=== PATIENT | male | born 1955 | race Caucasian/White ===

== ENCOUNTER 2016-10-15 19:35 | Emergency (ER) | payer BC ==
[~2016-10-15] VITALS: Ht 180.3 cm; Wt 111.1 kg
[2016-10-15 19:38] VITALS: TEMP 36.8; Ht 180.3 cm; Wt 111.1 kg
[2016-10-15] MEDS ORDERED: HYDROCODONE/ACETAMOPHEN 5/325MG TAB PO STA (20:11)
--- NOTE | 2016-10-15 20:47 | DIAGNOSTIC IMAGING REPORT ---
RIGHT HUMERUS MIN 2 VIEWS ROUTINE, RIGHT ELBOW MIN 3 VIEWS ROUTINE HISTORY: 61 years-old Male lifting injury, suspect biceps tendon rupture, eval fx Right COMPARISON: None available TECHNIQUE: 3 views of the right elbow and 2 views of the right humerus. FINDINGS: Humerus: There is moderate spurring of the medial aspect humeral neck. There is spurring at the greater tuberosity suggesting rotator cuff pathology. No acute fracture or dislocation is identified. There is soft tissue prominence in the region of the biceps musculature proximally with soft tissue swelling noted along the volar aspect of the distal humerus. Elbow: There is spurring of the medial and lateral epicondyles expected regions of the common flexor and extensor tendons respectively. The radial head is intact. No elbow joint effusion is identified. There is no acute fracture or dislocation. IMPRESSION: 1. No acute fracture or dislocation. 2. Soft tissue findings of the upper arm as above may reflect underlying distal biceps tendon injury which could be further evaluated with nonemergent elbow MRI if clinically indicated. 3. Mild degenerative changes of the humerus and elbow as above. The above report was generated using voice recognition software. It may contain grammatical, syntax or spelling errors. Electronically signed by: Maximiliano Summers M.D. 10/15/2016 8:46 PM Dictated Date/Time: 10/15/2016 8:42 PM
[2016-10-15] MEDS ORDERED: ASPI81TA28 PO (21:19)
[2016-10-15] MEDS ORDERED: CLOP1TAB15 PO (21:19)
[2016-10-15] MEDS ORDERED: GLC/500 PO (21:19)
[2016-10-15] MEDS ORDERED: ATEN-173 PO (21:19)
[2016-10-15] MEDS ORDERED: LEVO50TA6 PO (21:19)
[2016-10-15] MEDS ORDERED: CRESTOR PO (21:19)
[2016-10-15] MEDS ORDERED: CYCL0.052 OP (21:19)
--- NOTE | 2016-10-15 21:22 | EMERGENCY ROOM VISIT NOTE ---
ED Visit Note First contact with patient: 19:47 CHIEF COMPLAINT: Elbow pain HISTORY OF PRESENT ILLNESS: This 61-year-old male patient presents to the emergency department with his family member complaining of pain in the right elbow and upper arm after lifting an awning earlier today. He states he believes the awning was about 100 pounds. He states while he was lifting the awning, he felt suddenly catch and felt several "pops" in his arm and noticed that his muscle was bulging. The patient rates their pain as constant, aching, and 8/10. The patient has taken no medications for relief of the pain. The patient has not had previous injuries to this arm. The patient does not have any numbness or tingling. The patient denies any other injuries. He is right- hand dominant. REVIEW OF SYSTEMS: A 6 system review of systems was completed with positives and pertinent negatives listed in the HPI. ALLERGIES: See chart MEDICATIONS: See chart PMH: See chart SOCIAL HISTORY: See chart PHYSICAL EXAM: Vital Signs: Reviewed Nurse's notes, vital signs stable. GENERAL : Pleasant and cooperative, in no acute distress, well-developed, well- nourished. SKIN: The skin was without rashes, erythema, edema, warmth, or bruising. Capillary reflex less than 3 seconds. MUSCULOSKELETAL: The patient is holding their right arm against the body in a slightly flexed position. There is tenderness over the anterior distal upper arm just above the elbow joint with mild ecchymosis noted. The biceps muscle is noted to be bulging abnormally. Triceps strength 5/5, biceps strength 4/5 of the right arm. There is no tenderness with range of motion of the right elbow. There is no tenderness of the shoulder, wrist, or hand. The patient is able to give a thumbs up, make an OK sign, and a #3 with their fingers. Radial pulse 2+. NEURO: Patient was alert and oriented to person place and time. Normal sensation to light and sharp touch. IMAGING: RIGHT HUMERUS MIN 2 VIEWS ROUTINE, RIGHT ELBOW MIN 3 VIEWS ROUTINE HISTORY: 61 years-old Male lifting injury, suspect biceps tendon rupture, eval fx Right COMPARISON: None available TECHNIQUE: 3 views of the right elbow and 2 views of the right humerus. FINDINGS: Humerus: There is moderate spurring of the medial aspect humeral neck. There is spurring at the greater tuberosity suggesting rotator cuff pathology. No acute fracture or dislocation is identified. There is soft tissue prominence in the region of the biceps musculature proximally with soft tissue swelling noted along the volar aspect of the distal humerus. Elbow: There is spurring of the medial and lateral epicondyles expected regions of the common flexor and extensor tendons respectively. The radial head is intact. No elbow joint effusion is identified. There is no acute fracture or dislocation. IMPRESSION: 1. No acute fracture or dislocation. 2. Soft tissue findings of the upper arm as above may reflect underlying distal biceps tendon injury which could be further evaluated with nonemergent elbow MRI if clinically indicated. 3. Mild degenerative changes of the humerus and elbow as above. EMERGENCY DEPARTMENT COURSE: I examined the patient. An x-ray of the right humerus and right elbow was reviewed myself and read by radiology and shows no acute fracture, and does support diagnosis of possible biceps tendon injury. Based on the patient's history and clinical exam, I do suspect biceps tendon rupture. The patient was placed in right arm sling under my direction and the position was satisfactory. Neurovascular status was rechecked and intact. Patient was instructed to follow up with orthopedics. The patient was discharged home in stable condition. Problem List Medical Problems: (1) Carpal tunnel syndrome Status: Resolved (2) Glaucoma Status: Chronic (3) Hyperlipidemia Status: Chronic (4) Hypertension Status: Chronic Surgical Problems: (1) Hx of arthroscopic knee surgery Status: Resolved Current/Historical Medications Scheduled Aspirin (Aspirin Ec), 81 MG PO DAILY Atenolol (Tenormin), 25 MG PO DAILY Clopidogrel (Plavix), 75 MG PO DAILY Cyclosporine (Ophth) (Restasis), 1 DROP OP HS Levothyroxine Sodium (Levothyroxine Sodium), 50 MCG PO DAILY Metformin Hcl (Glucophage), 1,000 MG PO DAILY [Crestor], 1 TAB PO DAILY Allergies Coded Allergies: No Known Allergies (Unverified , 10/15/16) Vital Signs Date Time Temp Pulse Resp B/P (MAP) Pulse Ox O2 Delivery O2 Flow Rate FiO2 10/15/16 22:12 68 18 134/70 98 10/15/16 21:29 66 18 141/95 97 Room Air 10/15/16 19:38 36.8 86 20 146/90 95 Room Air Medications Administered Medications (Trade) Dose Ordered Sig/Jose Route Start Time Stop Time Status Last Admin Dose Admin Acetaminophen/ Hydrocodone Bitart ([place] 5/325 Tab) 1 tab NOW STAT PO 10/15/16 20:11 10/15/16 20:13 DC 10/15/16 20:18 1 TAB Departure Information Impression Primary Impression: Biceps tendon rupture Dispostion Home / Self-Care Condition GOOD Referrals Mikayla Weston DO (PCP) Patient Instructions Biceps Tendonitis Distal, My [facility] Additional Instructions Ice and elevation for the next 2 days. Wear the sling as needed for comfort. Tylenol 1000 mg every 8 hours and/or ibuprofen 600 mg every 6-8 hours as needed for pain. Follow-up with your critical care specialist in the next week to further evaluate your arm injury. Call for an appointment. Problem Qualifiers Primary Impression: Biceps tendon rupture Encounter type: initial encounter Laterality: right Qualified Codes: S46.211A - Strain of muscle, fascia and tendon of other parts of biceps, right arm, initial encounter
[2016-10-15 22:12] VITALS: BP 134/70; PULSE 68; O2SAT 98
== END 2016-10-15 22:12 | disposition home or self-care (01) ==
LOC: C.EDB 19:38 → C.EDD 22:12
DX: S46.211A Strain of muscle, fascia and tendon of other parts of biceps, right arm, initial encounter (principal); X50.9XXA Other and unspecified overexertion or strenuous movements or postures, initial encounter; E78.5 Hyperlipidemia, unspecified; I10 Essential (primary) hypertension; H40.9 Unspecified glaucoma; Z79.82 Long term (current) use of aspirin; Z79.84 Long term (current) use of oral hypoglycemic drugs

== ENCOUNTER → 2016-10-16 | Outpatient (CLI) | payer BC ==
[~2016-10-16] MED LIST: ASPI81TA28 PO; ATEN-173 PO; CLOP1TAB15 PO; CRESTOR PO; CYCL0.052 OP; GLC/500 PO; LEVO50TA6 PO
== END | disposition home or self-care (01) ==
LOC: C.CPL 15:51
DX: Z01.818 Encounter for other preprocedural examination (principal); S46.211A Strain of muscle, fascia and tendon of other parts of biceps, right arm, initial encounter; X58.XXXA Exposure to other specified factors, initial encounter

== ENCOUNTER → 2016-10-18 | Outpatient (CLI) | payer BC ==
[2016-10-18 13:29] LABS: PARTIAL THROMBOPLASTIN RATIO 1.2; PROTHROMBIN TIME (PATIENT) 10.7 SECONDS (9.0-12.0)
[2016-10-18 13:34] LABS: BASO % 0.8 %; BASO ABS # 0.05 K/uL (0-0.2); COMPLETE YES; EOS % 3.4 %; HEMATOCRIT 42.7 % (42-52); IG% 0.2 %; LYMPH % 36.8 %; MEAN CELL VOLUME 94.1 fL (80-100); MEAN CORPUSCULAR HEMOGLOBIN 31.9 pg (25-34); MEAN PLATELET VOLUME 10.7 fL (7.4-10.4); MONO % 7.8 %; PLATELET COUNT 227 K/uL (130-400); RED BLOOD COUNT 4.54 M/uL (4.7-6.1); WHITE BLOOD COUNT 6.25 K/uL (4.8-10.8)
[2016-10-18 13:44] LABS: ALT/SGPT 42 U/L (12-78); BLOOD UREA NITROGEN 11 mg/dl (7-18); BUN/CREATININE RATIO 12.3 (10-20); CALCIUM 9.1 mg/dl (8.5-10.1); CARBON DIOXIDE 24 mmol/L (21-32); CHLORIDE 110 mmol/L (98-107); CHOLESTEROL 98 mg/dl (0-200); CREATININE 0.93 mg/dl (0.60-1.40); GLUCOSE 89 mg/dl (70-99); POTASSIUM 4.4 mmol/L (3.5-5.1); SODIUM 141 mmol/L (136-145); TRIGLYCERIDES 75 mg/dl (0-150); VERY LOW DENSITY LIPOPROT CALC 15 mg/dl
[2016-10-18 13:55] LABS: ALB/GLOB RATIO 1.4 (0.9-2); ALKALINE PHOSPHATASE 52 U/L (45-117); AST/SGOT 32 U/L (15-37); CHOLESTEROL/HDL RATIO 2.2; HDL CHOLESTEROL 45 mg/dl; LDL CHOLESTEROL CALCULATED 38 mg/dl
== END | disposition home or self-care (01) ==
LOC: C.LABPVFM 07:34
PROVIDERS: ATTEND Family Medicine
DX: Z01.818 Encounter for other preprocedural examination (principal); E78.5 Hyperlipidemia, unspecified; I10 Essential (primary) hypertension; E03.9 Hypothyroidism, unspecified; Z11.59 Encounter for screening for other viral diseases

== ENCOUNTER → 2017-04-25 | Outpatient (CLI) | payer BC ==
[2017-04-25 12:31] LABS: HEMATOCRIT 45.3 % (42-52); HEMOGLOBIN 15.7 g/dL (14.0-18.0); MEAN CELL VOLUME 91.3 fL (80-100); MEAN CORPUSCULAR HEMOGLOBIN 31.7 pg (25-34); MEAN CORPUSCULAR HGB CONC 34.7 g/dl (32-36); MEAN PLATELET VOLUME 10.3 fL (7.4-10.4); PLATELET COUNT 212 K/uL (130-400); RED CELL DISTRIBUTION WIDTH CV 13.2 % (11.5-14.5); RED CELL DISTRIBUTION WIDTH SD 43.6 fL (36.4-46.3); WHITE BLOOD COUNT 6.46 K/uL (4.8-10.8)
[2017-04-25 12:50] LABS: ALBUMIN 4.2 gm/dl (3.4-5.0); ALT/SGPT 25 U/L (12-78); BLOOD UREA NITROGEN 12 mg/dl (7-18); CALCIUM 8.9 mg/dl (8.5-10.1); CARBON DIOXIDE 28 mmol/L (21-32); CHOLESTEROL 155 mg/dl (0-200); CREATININE 1.03 mg/dl (0.60-1.40); GLUCOSE 91 mg/dl (70-99); POTASSIUM 4.3 mmol/L (3.5-5.1); SODIUM 137 mmol/L (136-145)
[2017-04-25 12:55] LABS: HEMOGLOBIN A1C 5.6 % (4.5-5.6)
[2017-04-25 13:01] LABS: ALKALINE PHOSPHATASE 64 U/L (45-117); AST/SGOT 19 U/L (15-37); LDL CHOLESTEROL CALCULATED 79 mg/dl; TOTAL PROTEIN 7.5 gm/dl (6.4-8.2)
== END | disposition home or self-care (01) ==
LOC: C.LABPVFM 08:06
PROVIDERS: ATTEND Family Medicine
DX: R73.03 Prediabetes (principal)

== ENCOUNTER → 2017-10-20 | Outpatient (CLI) | payer BC ==
[~2017-10-20] MED LIST changes: +HYZ/10015 PO
[2017-10-20 13:34] LABS: HEMOGLOBIN A1C 5.7 % (4.5-5.6)
[2017-10-20 13:47] LABS: ALKALINE PHOSPHATASE 55 U/L (45-117); ALT/SGPT 30 U/L (12-78); AST/SGOT 24 U/L (15-37); BLOOD UREA NITROGEN 15 mg/dl (7-18); CALCIUM 8.6 mg/dl (8.5-10.1); CARBON DIOXIDE 24 mmol/L (21-32); CHOLESTEROL 105 mg/dl (0-200); CREATININE 0.99 mg/dl (0.60-1.40); GLUCOSE 92 mg/dl (70-99); LDL CHOLESTEROL CALCULATED 54 mg/dl; POTASSIUM 4.3 mmol/L (3.5-5.1); SODIUM 137 mmol/L (136-145)
== END | disposition home or self-care (01) ==
LOC: C.LABPVFM 07:55
PROVIDERS: ATTEND Family Medicine
DX: Z01.818 Encounter for other preprocedural examination (principal)

== ENCOUNTER 2021-09-12 05:05 | Observation (INO) ==
--- NOTE | 2021-09-07 14:07 | Anesthesiology Consultation ---
Date of Service September 07, 2021 Assessment & Plan (1) Encounter for pre-operative examination: Chart Review Chart Review: Acceptable Risk for Surgery History Surgery Operation Date: 09/12/21 07:15 Proposed Procedures p Left Total Shoulder Arthroplasty - Abdullahi Mariee MD Height/Weight Height: 5 ft 10 in Weight: 120.202 kg Allergies Allergy/AdvReac Type Severity Reaction Status Date / Time No Known Drug Allergies Allergy Verified 09/07/21 09:41 Medications Home Medications Medication Instructions Recorded Confirmed Last Taken aspirin 81 mg tablet,delayed 81 mg PO QAM tab 10/21/18 09/07/21 09/05/21 05:00 release hydrocodone 5 mg-acetaminophen 325 1 tab PO Q6H PRN #20 tab 05/15/21 09/07/21 09/05/21 22:00 mg tablet clopidogrel 75 mg tablet 75 mg PO QAM 08/08/21 09/07/21 09/05/21 05:00 rosuvastatin 20 mg tablet 20 mg PO QAM 08/08/21 09/07/21 09/06/21 06:00 atenolol 25 mg tablet 25 mg PO QAM #90 tab 09/03/21 09/07/21 09/06/21 06:00 levothyroxine 50 mcg tablet 50 mcg PO QAM #90 tab 09/03/21 09/07/21 09/06/21 06:00 losartan 100 mg tablet 100 mg PO QAM #90 tab 09/03/21 09/07/21 09/05/21 05:00 metformin 500 mg tablet 1,000 mg PO QAM 09/07/21 09/07/21 Unknown Past Medical History Medical History Biceps tendon tear R 2-3 yrs ago Carpal tunnel syndrome s/p surgery on right Cerebral atherosclerosis per pt with imaging 20 yrs ago Glaucoma H/O TIA (transient ischemic attack) and stroke 20 years ago Hearing loss Hyperlipidemia Hypertension controlled, stable per pt Hypothyroidism Lyme disease 2 episodes (8-10 years ago) Morbid obesity Prediabetes Reason for metformin Past Family History Family History Mother Diabetes Hypertension Father Myocardial infarction Denies family history of Ovarian cancer Prostate cancer Breast cancer Colorectal cancer Past Surgical History Surgical History History of carpal tunnel release Right Hx of arthroscopic knee surgery Right x2 and Left x1 S/P colonoscopy Social History Smoking Status: Current every day smoker tobacco type: cigarettes Smoking cigarettes per day: 1 ppd-advised Do You Dip or Chew Tobacco: No Hx Alcohol Use: Yes Alcohol type: beer alcohol intake frequency: a few times a month Hx Substance Use: No substance use type: does not use Testing Laboratory Results Laboratory Tests 08/10/21 08/10/21 09:48 09:48 WBC 7.94 Hgb 15.7 Hct 45.8 Plt Count 271 Potassium 4.6 Creatinine 0.97 Electrocardiogram Date: 08/10/21 Findings: + NSR @ (30)
--- NOTE | 2021-09-11 12:35 | History & Physical Report ---
Date of Service September 11, 2021 Assessment & Plan (1) Primary osteoarthritis, left shoulder: Plan: Treatment options discussed with the patient. He has failed conservative measures. Recommend proceeding with surgical intervention. Risks, benefits and alternatives to surgery including but not limited to infection, DVT, pain, stiffness, need for revision surgery, damage to blood vessels, damage to nerves, PE, , were discussed with the patient and they wish to proceed. Plan for left total shoulder arthroplasty, possible distal clavicle excision. Surgery scheduled for September 12, 2021 at [facility] with Dr. Mariee. We will plan on outpatient PT versus home health PT. all questions answered. Follow-up postop History of Present Illness Chief Complaint: Left shoulder pain Primary Care Provider: Mague Ramirez MD 66-year-old male with past medical history hypertension, history of TIA, high cholesterol, ROSSANA who presents with longstanding history of left shoulder pain. Pain is interfering with his daily activities. He has failed conservative measures. He like to proceed with surgical intervention. Patient denies headaches, sweats, fevers, chills, double vision, blurred vision, cough, sore throat, dysphagia, chest pain, sob, wheezing, n/v/d/c, numbness, tingling, fatigue, urinary symptoms, mood disorders. ROS positive for left shoulder pain and stiffness. Allergies Allergy/AdvReac Type Severity Reaction Status Date / Time No Known Drug Allergies Allergy Verified 09/07/21 09:41 Home Medications Medication Instructions Recorded Confirmed Type aspirin 81 mg tablet,delayed 81 mg PO QAM tab 10/21/18 09/07/21 History release hydrocodone 5 mg-acetaminophen 325 1 tab PO Q6H PRN #20 tab 05/15/21 09/07/21 Rx mg tablet clopidogrel 75 mg tablet 75 mg PO QAM 08/08/21 09/07/21 History rosuvastatin 20 mg tablet 20 mg PO QAM 08/08/21 09/07/21 History atenolol 25 mg tablet 25 mg PO QAM #90 tab 09/03/21 09/07/21 Rx levothyroxine 50 mcg tablet 50 mcg PO QAM #90 tab 09/03/21 09/07/21 Rx losartan 100 mg tablet 100 mg PO QAM #90 tab 09/03/21 09/07/21 Rx metformin 500 mg tablet 1,000 mg PO QAM 09/07/21 09/07/21 History Past Med/Surg History Medical History Biceps tendon tear R 2-3 yrs ago Carpal tunnel syndrome s/p surgery on right Cerebral atherosclerosis per pt with imaging 20 yrs ago Glaucoma H/O TIA (transient ischemic attack) and stroke 20 years ago Hearing loss Hyperlipidemia Hypertension controlled, stable per pt Hypothyroidism Lyme disease 2 episodes (8-10 years ago) Morbid obesity Prediabetes Reason for metformin Surgical History History of carpal tunnel release Right Hx of arthroscopic knee surgery Right x2 and Left x1 S/P colonoscopy Family History Mother Diabetes Hypertension Father Myocardial infarction Denies family history of Ovarian cancer Prostate cancer Breast cancer Colorectal cancer Social History (Updated 11/14/20 @ 16:02 by Laure Galan LPN) Smoking Status: Current every day smoker packs per day: 1; Cigarettes Per Day: 1 ppd-advised; Second Hand Exposure: No; Hx Alcohol Use: Yes Alcohol type: beer Hx Substance Use: No Preferred Language: Tuvaluan Communication Ability: Effective Hearing Ability: Hard of Hearing Hand 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 Required: No Beliefs That Will Affect Care: None marital status: Current Living Situation: Spouse current occupational status: employed 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 How many Children do You have: 4 Feels Safe at Home: Yes Childhood Exposure to Second-Hand Smoke: Yes caffeine: Yes Dental Care, Regularly: Yes Physical Activity Frequency: Daily Seatbelt Use: sometimes Sunscreen Use: Yes Assistive Devices: None Review of Systems All systems reviewed & are unremarkable except as noted in HPI & below Physical Exam Constitutional: well developed and well nourished; no acute distress Eyes: PERRL, conjunctivae normal, anicteric sclerae ENMT: external ear and nose normal, oropharynx normal Neck: trachea midline, no thyromegaly Respiratory: normal respiratory effort, lungs clear to auscultation Cardiovascular: RRR, no murmur, no edema Musculoskeletal: Left shoulder: Tenderness AC joint, anterior glenoid, crepitation present with range of motion. Active painful range of motion. Positive impingement signs. Abduction to 70 degrees, forward flexion 140 degrees, external rotation 80 degrees. Strength is preserved. Skin: no rashes, warm and dry Neurologic: patellar DTR's 2+ bilat, sensation intact Psychiatric: A+Ox3, euthymic affect Results & Data ([facility]) Diagnostic Findings Left shoulder: End-stage osteoarthritis left shoulder, [id number] glenohumeral joint. Degenerative changes AC joint. MRI demonstrates rotator cuff tendinopathy without full-thickness tear.
[2021-09-12] MEDS ORDERED: TRANEXAMIC ACID 1,000 MG **IV Intra-op IV SCH (06:00)
[2021-09-12] MEDS ORDERED: FAMOTIDINE 20 MG TAB PO SCH (06:00)
[2021-09-12] MEDS ORDERED: TRANEXAMIC ACID 1,000 MG **IV Pre-op IV SCH (06:00)
[2021-09-12] MEDS ORDERED: CeleBREX 200 MG CAP PO SCH (06:00)
[2021-09-12] MEDS ORDERED: dexAMETHasone 4 MG TAB PO SCH (06:00)
[2021-09-12] MEDS ORDERED: LR 15ML/HR IV SCH (06:00)
[2021-09-12] MEDS ORDERED: ACETAMINOPHEN 500 MG TAB PO SCH (06:00)
[2021-09-12] MEDS ORDERED: METOCLOPRAMIDE HCL 10 MG TABLET PO SCH (06:00)
[2021-09-12] MEDS ORDERED: GABAPENTIN 300 MG CAP PO SCH (06:00)
[2021-09-12] MEDS ORDERED: BUPIVACAINE 0.5 % 5 MG/1 ML PF 10ML VIAL ONE (06:13)
[2021-09-12] MEDS ORDERED: PROPOFOL IV EMULSION 10 MG/ML 20 ML VIAL IV ONE (06:33)
[2021-09-12] MEDS ORDERED: ONDANSETRON INJ 2 MG/ML 2 ML VIAL ONE (06:33)
[2021-09-12] MEDS ORDERED: fentaNYL citrate 100 MCG/2 ML VIAL ONE (06:33)
[2021-09-12] MEDS ORDERED: MIDAZOLAM HCL 1 MG/ML 2ML VIAL ONE (06:33)
[2021-09-12] MEDS ORDERED: SUCCINYLCHOLINE CHLORIDE 20 MG/ML 10 ML VIAL IV ONE (06:33)
[2021-09-12] MEDS ORDERED: ONDANSETRON INJ 2 MG/ML 2 ML VIAL IV PRN ×2 (06:37→11:43)
[2021-09-12] MEDS ORDERED: HYDROmorphone INJ 1 MG/ML SYRINGE IV PRN (06:37)
[2021-09-12] MEDS ORDERED: ePHEDrine sulfate 50 MG/ML AMP IV PRN (06:37)
[2021-09-12] MEDS ORDERED: fentaNYL citrate 100 MCG/2 ML VIAL IV PRN (06:37)
[2021-09-12] MEDS ORDERED: ATROPINE SULFATE 0.1 MG/ML 10ML SYR IV PRN (06:37)
--- NOTE | 2021-09-12 07:00 | History & Physical Bridge Note ---
Date of Service September 12, 2021 History & Physical Bridge Note I have examined the patient, reviewed the History & Physical and in the interval since the performance of the History & Physical I have noted the following changes of clinical significance: no changes noted
[2021-09-12] MEDS ORDERED: ePHEDrine sulfate 50 MG/ML AMP ONE (07:33)
[2021-09-12] MEDS ORDERED: PHENYLEPHRINE HCL 10 MG/ML VIAL ONE (07:33)
[2021-09-12] MEDS ORDERED: GLYCOPYRROLATE 0.2 MG/ML VIAL ONE (07:38)
[2021-09-12] MEDS ORDERED: DEXAMETHASONE SOD INJ 4 MG/ML VIAL ONE (07:47)
[2021-09-12] MEDS ORDERED: SUGAMMADEX SODIUM 200 MG/2 ML VIAL IV ONE (08:00)
[2021-09-12] MEDS ORDERED: ROCURONIUM BROMIDE 10 MG/ML 5 ML VIAL IV ONE ×6 (08:14→08:29)
[2021-09-12] MEDS ORDERED: EPINEPHrine INJ 1 MG/ML AMP TOP ONE (08:28)
--- NOTE | 2021-09-12 10:26 | Post Operative Brief Note ---
Immediate Post Op Note v1 Date of Surgery September 12, 2021 Pre & Post Diagnosis Operation Date: 09/12/21 07:00 Pre-Op Diagnosis: Osteoarthritis of the Left Shoulder Post-Op Diagnosis: Osteoarthritis of the Left Shoulder, chronic biceps tenosynovitis I identified the patient and participated in the time-out.: Yes Procedure Operation Date: 09/12/21 07:00 Actual Procedures p Left Total Shoulder Arthroplasty, with Distal Clavicle excision, Biceps Tenodesis(Left) - Abdullahi Mariee MD Surgeon Abdullahi Mariee MD Biomedical Specialist Venkat SCHMITT Estimated Blood Loss 50 Findings Consistent with Post-Op Diagnosis Specimens Humeral head distal clavicle Drains Hemovac Drain Anesthesia Type General Regional Complications none Disposition Disposition: Recovery Room Overlapping Procedure I was immediately available: during the entire case.
--- NOTE | 2021-09-12 10:53 | Operative Report ---
Post Operative Report Pre & Post Diagnosis Operation Date: 09/12/21 07:00 Pre-Op Diagnosis: Osteoarthritis of the Left Shoulder Post-Op Diagnosis: Osteoarthritis of the Left Shoulder, chronic biceps tenosynovitis I identified the patient and participated in the time-out.: Yes Procedure Operation Date: 09/12/21 07:00 Actual Procedures p Left Total Shoulder Arthroplasty, with Distal Clavicle excision, Biceps Tenodesis(Left) - Abdullahi Mariee MD Surgeon Abdullahi Mariee MD Dry Cleaner Helper Venkat SCHMITT Estimated Blood Loss 50 Findings Consistent with Post-Op Diagnosis Specimens Bone cuts Drains 2 Hemovac Anesthesia Type General Regional Complications none Disposition Disposition: Recovery Room Indications 66-year-old male with chronic progressive osteoarthritis of the left shoulder failed conservative management. X-rays demonstrate hypertrophic AC joint osteoarthritis with inferior spur causing impingement and end-stage glenohumeral osteoarthritis type A wear pattern Description of Procedure Patient was taken to the operating room anesthetized under regional block and general anesthetic. Patient was placed in a 40 degree beach chair position with a foam headrest protective eyewear all extremities padded teds and SCDs were placed. A towel roll was placed on the medial border of the scapula of the left upper extremity. The arm was examined and range of motion demonstrated forward flexion 150 degrees, external rotation 45 degrees, abduction 90 degrees. An anterior deltopectoral approach was performed. Longitudinal incision was made in deltopectoral interval. Skin incised sharply and subcutaneous flaps elevated. The deltopectoral interval was identified. The cephalic vein demonstrated large intact vein. The cephalic vein was retracted laterally with the deltoid. The clavipectoral fascia was divided at the lateral margin of the conjoined tendon extending up to the CA ligament. There was a thick falciform ligament. The upper centimeter of the pectoralis was released for inferior exposure. Biceps tendon demonstrated a large fluid collection surrounding the biceps tendon with chronic tenosynovitis extending up into the bicipital groove where there were some osteophytes. The biceps was tenodesed to the falciform ligament and pectoralis tendon using #2 FiberWire [id number] sutures. Proximal biceps was resected. Rotator cuff findings demonstrated intact rotator cuff with some subacromial subdeltoid bursitis which was resected. The circumflex vessels were tied off with silk ties and divided laterally. The subscapularis muscle fibers were split at the level of circumflex vessels and released off the inferior capsule with a Kitner elevator and then a blunt Hohmann retractor was placed protect the axillary nerve. The rotator interval was released down to the level of the glenoid. The subscapularis tendon was taken down with a transtendinous incision leaving a cuff of tissue for repair on the lesser tuberosity. The humeral head findings demonstrated large inferior osteophytes with a flattened head with eburnated bone and the majority of articular cartilage was down to bone. The inferior osteophytes were resected using an artist chisel and rongeur. The inferior capsule was released off the bone subperiosteally using a Lucia elevator. A #1 Vicryl traction suture was p laced into the free edge of the subscapularis tendon. A Fukuda retractor was placed into the joint. Capsule was released with Pérez scissors down to the glenoid and off of the anterior glenoid to the rotator interval which was released to meet the capsular release creating a 360 degree release of subscapularis tendon. An anterior Bankart retractor was placed. The glenoid and labral findings demonstrated type a central wear with complete loss of articular cartilage on the entire glenoid with eburnated bone and small subchondral cysts. An anterior-inferior and posterior inferior capsule release was performed electrocautery on bone and a Lucia elevator. The axillary nerve was protected inferiorly with the blunt Hohmann. Attention was taken back to the humeral head. Humeral head was exposed with extension and external rotation. The oscillating saw was used to make an anatomic neck cut removing the articular surface. All the circumferential remaining osteophytes were trimmed with a rongeur. The humerus was sized for a 2 nucleus and a 52 x 23 mm humeral head. The bone was assessed with a thumb press test and there was solid cancellous bone. The guide for the nucleus was placed centrally and then the guidepin was placed. The surface reamer was used followed by the central drill for the nucleus. The trial nucleus was inserted and the cut protector was placed. The humerus was retracted posterior to the glenoid . A Tornier retractor ,Hohmann retractors as well as an anterior Bankart retractor were placed. The glenoid was fully exposed. The Tornier Cortiloc glenoid was used. The medium 40 radius size was chosen. The central drill hole was made followed by the reamer for the glenoid followed by widening the central hole for the central post. The guide for the peripheral drill holes was placed and the drill holes were made. The trial reduction performed with stable fixation. The trial removed and the glenoid copiously irrigated with pulsed saline solution. The drill holes were packed with epinephrine-soaked tampons. The Palacos G cement was vacuum mixed. The Tornier medium 40 radius Cortiloc glenoid component was then cemented in position after drying the glenoid after removal of the tampons. Fixation was excellent. All excess cement was cleared. When the cement cured we moved onto removing the cut protector doing a trial reduction with a 52 x 23 millimeter humeral head trial. Stability was assessed and was stable. Soft tissue tension on the subscapularis tendon was satisfactory. The trial components of the humeral head were removed and the 3 drill holes were made in the harder bone in the biceps groove area and transosseous #5 FiberWire sutures were placed. Then the humeral cut surface was reexposed with retractors and after irrigation the size 2 nucleus was impacted leaving it slightly proud until the simplicity head 52 x 23 humeral head was placed into the nucleus and then both were impacted into the humerus with a tight press-fit. The humerus was reduced to the glenoid. The stability was verified. The subscapularis tendon was repaired in 2 [id number] #2 FiberWire sutures. Lateral row fixation was performed with interrupted rqskbt-[id number] #2 FiberWire sutures and rotator interval was closed with #2 FiberWire sutures. Range of motion demonstrated 150 degrees flexion, 90 degrees abduction, 45 degrees external rotation without tension on repair. The pectoralis was repaired with jzojvb-uy-yophh #2 FiberWire sutures placing sutures back through the biceps tendon to reinforce the tenodesis. Moist sponge was placed into the wound and attention was taken to the distal clavicle excision. A transverse incision was made across the acromioclavicular joint. Subperiosteal dissection was performed to expose 1 cm distal clavicle. Findings at the acromioclavicular joint were advanced osteoarthritis with large loose calcifications in the superior capsule that were resected out of the joint. There were superior and inferior osteophytes noted. Retractors were placed. 1 cm of distal clavicle was resected with an oscillating saw. After irrigation with pulsed saline solution, the deltotrapezial fascia was repaired with clfvnh-go-iucwh #2 FiberWire sutures subcutaneous tissues were closed with interrupted 2-0 Vicryl and the skin was closed with valeri 2 Hemovac drains were placed in the deltopectoral wound one deep to the conjoined tendon and one deep to the posterior deltoid. The deltopectoral interval was repaired with yyfamp-zh-ixbzl #1 Vicryl sutures. The subcutaneous tissue was repaired with 2-0 Vicryl sutures and the skin was closed with valeri. Sterile dressings were applied and a sling immobilizer. The patient tolerated the procedure well. Venkat SCHMITT acted as dietetic assistant throughout the procedure. He functioned as dietetic assistant assisting in all aspects of the procedure including patient positioning prepping draping, arm positioning, soft tissue retraction,, instrument management, subcutaneous and skin closure and postop care the patient as well. I attest to the content of the Intraoperative Record and any orders documented therein. Any exceptions are noted below.
--- NOTE | 2021-09-12 11:07 | XRay Report ---
XR shoulder LT min 2V routine HISTORY: 66 years-old Male Post shoulder surgery left knee total joint arthroplasty COMPARISON: Chest radiographs 08/10/2021 TECHNIQUE: 2 views of the left shoulder FINDINGS: Status post resection of the distal left clavicle. Satisfactory alignment of the left shoulder arthro plasty. Overlying skin valeri are noted along with expected postoperative soft tissue swelling with deep tissue air and overlying skin valeri. No acute fracture or unexpected opaque foreign body. IMPRESSION: Status post resection of the distal left clavicle with satisfactory positioning of the le ft shoulder arthroplasty. ACT 112: Negative or not required by law. The above report was generated using voice recognition software. It may contain grammatical, syntax o r spelling errors. Electronically signed by: Teto Summers M.D. 09/12/2021 11:06 AM
[2021-09-12] MEDS ORDERED: HYDROmorphone INJ 0.5 MG/0.5 ML SYR IV PRN (11:43)
[2021-09-12] MEDS ORDERED: bisacodyL 10 MG SUPP PR PRN (11:43)
[2021-09-12] MEDS ORDERED: METOCLOPRAMIDE HCL INJ 5 MG/ML 2 ML VIAL IV PRN (11:43)
[2021-09-12] MEDS ORDERED: TAMSULOSIN HCL 0.4 MG CAP PO PRN (11:43)
[2021-09-12] MEDS ORDERED: NALOXONE HCL 0.4 MG/1 ML VIAL/CARP IV PRN (11:43)
[2021-09-12] MEDS ORDERED: MAGNESIUM HYDROXIDE SUSP 30 ML UDC PO PRN (11:43)
[2021-09-12] MEDS: oxyCODONE HCL IR 5 MG TAB (IMMEDIATE RELEASE) PO PRN ×3 (12:01→21:46)
[2021-09-12] MEDS: SODIUM CHLORIDE 0.9% 1000ML 1,000 ML IV SCH ×2 (12:02→21:47)
--- NOTE | 2021-09-12 12:07 | Hospitalist Consultation ---
Date of Consultation September 12, 2021 Assessment & Plan (1) Primary osteoarthritis, left shoulder: - S/p total left shoulder arthroplasty. EBL 50 cc. 2 Hemovac drains placed. POD #0. - Defer IVF/antibiotics/pain medication/VTE PPx to primary team. - Patient has naloxone ordered as needed. - CBC and BMP in AM. (2) Hypertension: - Continue atenolol, may resume losartan pending adequate renal function on AM labs. (3) Hyperlipidemia: - Continue rosuvastatin 20 mg daily. (4) Hypothyroidism: - Continue levothyroxine 50 mcg daily. (5) Prediabetes: - Hold metformin. - A1c in August --> 5.7, POC glucose this AM 106. - Will order accuchecks achs with SSI w/o carb ratio. (6) H/O TIA (transient ischemic attack) and stroke: - Reportedly 20 years ago without residual deficits. - May continue on ASA + Plavix tomorrow AM. - Admitted to med/surg per primary team. - DVT ppx per primary team - Full Code. Supervising Physician Co-Signing Physician Notes Attending Attestation & Consult Note: Pt seen/examined, chart reviewed, care plan d/w PA Erika Nichole. I agree with the stephens components of her documentation. 66yo male - current tobacco user, h/o TIA, thyroid disease, HTN - who underwent L total shoulder replacement today. I saw him on the ortho floor post-op - resting comfortably, c/o left shoulder pain only. No chest pain, dyspnea, nausea or emesis. Able to tolerate a meal post-op. PMH/PSH/allergies/meds/sochx/famhx - reviewed VSS gen - NAD, resting comfortably in bed musculo - left shoulder dressings in place, left shoulder drain in place heart - RRR, s1 s2 lungs - CTA b/l abd - soft NT BS+ ext - no ankle edema, pulses 2+ b/l A/P: 1. s/p left total shoulder replacement today 2. h/o TIA 3. HTN 4. tobacco use see Ms Varela's documentation for plans f/u on AM labs tomorrow Francisco Ren MD History of Present Illness Reason for Consultation: post op medication management Requesting Physician: Abdullahi Mariee MD Attending Physician: Abdullahi Mariee MD History of Present Illness Elias Tran is a 6 y/o male with PMH significant for HTN, pre-diabetes, hyperlipidemia, hypothyroidism, previous CVA now on DAPT, and tobacco abuse who was admitted today 09/12 for left total shoulder arthroplasty after failing conservative measures. Hospitalist group was consulted for post-operative medication management. Today, he is POD#0 and feels well. He si without fever/chills, chest pain, SOB, palpitations, abdominal pain, n/v, numbness/tingling, weaknes, or severe pain at site of surgery. Vital signs reviewed, he is borderline tachycardic with HR in 90s, otherwise all VS wnl, on room air. Allergies Allergy/AdvReac Type Severity Reaction Status Date / Time No Known Drug Allergies Allergy Verified 09/12/21 05:56 Home Medications Medication Instructions Recorded Confirmed Type aspirin 81 mg tablet,delayed 81 mg PO QAM tab 10/21/18 09/12/21 History release hydrocodone 5 mg-acetaminophen 325 1 tab PO Q6H PRN #20 tab 05/15/21 09/12/21 Rx mg tablet clopidogrel 75 mg tablet (Plavix) 75 mg PO QAM 08/08/21 09/12/21 History rosuvastatin 20 mg tablet (Crestor) 20 mg PO QAM 08/08/21 09/12/21 History atenolol 25 mg tablet 25 mg PO QAM #90 tab 09/03/21 09/12/21 Rx losartan 100 mg tablet 100 mg PO QAM #90 tab 09/03/21 09/12/21 Rx metformin 500 mg tablet 1,000 mg PO QAM 09/07/21 09/12/21 History levothyroxine 50 mcg tablet 50 mcg PO QAM 09/12/21 09/12/21 History (Synthroid) acetaminophen 500 mg tablet 1,000 mg PO Q8 #60 tab 09/13/21 Rx (Tylenol Extra Strength) oxycodone 5 mg tablet 5 - 10 mg PO .Q4h-6h PRN #30 tab 09/13/21 Rx MDD 6 Patient History Medical History Biceps tendon tear R 2-3 yrs ago Carpal tunnel syndrome s/p surgery on right Cerebral atherosclerosis per pt with imaging 20 yrs ago Glaucoma H/O TIA (transient ischemic attack) and stroke 20 years ago Hearing loss Hyperlipidemia Hypertension controlled, stable per pt Hypothyroidism Lyme disease 2 episodes (8-10 years ago) Morbid obesity Prediabetes Reason for metformin Surgical History History of carpal tunnel release Right Hx of arthroscopic knee surgery Right x2 and Left x1 S/P colonoscopy Family History Mother Diabetes Hypertension Father Myocardial infarction Denies family history of Ovarian cancer Prostate cancer Breast cancer Colorectal cancer Social History Smoking Status: Current every day smoker packs per day: 1; Cigarettes Per Day: 1 ppd-advised; Second Hand Exposure: No; Do You Dip or Chew Tobacco: No; Tobacco Cessation Education Requested by Patient: No Hx Alcohol Use: Yes Alcohol type: beer Hx Substance Use: No Preferred Language: Urdu Communication Ability: Effective Hearing Ability: Hard of Hearing [employer]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: No Beliefs That Will Affect Care: None marital status: Current Living Situation: Spouse current occupational status: employed 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 How many Children do You have: 4 Other Information That Helps Us Care for You: No Feels Safe at Home: Yes Safety Concerns: Feels Safe At This Time Childhood Exposure to Second-Hand Smoke: Yes caffeine: Yes Dental Care, Regularly: Yes Physical Activity Frequency: Daily Seatbelt Use: sometimes Sunscreen Use: Yes Assistive Devices: None Results & Data Results & Data ([facility]) Vital Signs (Past 12 Hours) Vital Signs Temp Pulse Pulse Resp BP Pulse Ox 09/12/21 11:30 36.8 C 92 H 16 122/80 92 09/12/21 11:20 91 H 18 124/82 93 09/12/21 11:10 36.4 C L 89 20 120/86 94 09/12/21 11:00 91 H 17 140/99 93 09/12/21 10:50 87 18 137/93 95 09/12/21 10:42 36.1 C L 92 H 14 125/90 95 09/12/21 05:56 36.8 C 66 20 124/91 94 Laboratory Results Abnormal lab results 07/06/22 Range/Units 05:41 POC Glucose 106 H (70-99) mg/dl Diagnostic Findings Shoulder X-Ray 09/12/21 10:43 XR shoulder LT min 2V routine HISTORY: 66 years-old Male Post shoulder surgery left knee total joint arthroplasty COMPARISON: Chest radiographs 08/10/2021 TECHNIQUE: 2 views of the left shoulder FINDINGS: Status post resection of the distal left clavicle. Satisfactory alignment of the left shoulder arthroplasty. Overlying skin valeri are noted along with expected postoperative soft tissue swelling with deep tissue air and overlying skin valeri. No acute fracture or unexpected opaque foreign body. IMPRESSION: Status post resection of the distal left clavicle with satisfactory positioning of the left shoulder arthroplasty. ACT 112: Negative or not required by law. The above report was generated using voice recognition software. It may contain grammatical, syntax or spelling errors. Electronically signed by: Teto Summers M.D. 09/12/2021 11:06 AM PG Care Time/CCT Total # of Minutes Spent Total Time Spent with Patient: Total time spent is greater than 50% in coordination of care (as documented) at patient's floor/unit and/or counseling patient: Coding Level of Care Code 34509 Inpt Consult Level 2 Diagnoses Primary osteoarthritis, left shoulder M19.012 Hypertension I10 Hyperlipidemia E78.5 Hypothyroidism E03.9 Prediabetes R73.03 H/O TIA (transient ischemic attack) and stroke Z86.73
[2021-09-12] MEDS ORDERED: GLUCOSE 10 TAB/TUBE PO PRN (12:22)
[2021-09-12] MEDS ORDERED: GLUCOSE 40% GEL 15 GM TUBE PO PRN (12:22)
[2021-09-12] MEDS ORDERED: GLUCAGON FOR INJ 1 MG VIAL SQ PRN (12:22)
[2021-09-12] MEDS ORDERED: CARBOHYDRATES FOR HYPOGLYCEMIA PO PRN (12:22)
[2021-09-12] MEDS ORDERED: DEXTROSE 50% 50 ML SYRINGE IV PRN (12:22)
[2021-09-12] MEDS: ACETAMINOPHEN 500 MG TAB PO SCH ×2 (13:07→21:46)
[2021-09-12] MEDS: NICOTINE 21 MG/24 HR TDSY TD SCH (13:43)
--- NOTE | 2021-09-12 14:56 | Anesthesiology Progress Note ---
Date of Service September 12, 2021 Anesthesia Post Procedure Vital Signs Vital Signs: Temp Pulse Pulse Resp BP Pulse Ox 09/12/21 14:30 36.7 C 91 H 17 118/78 93 09/12/21 13:27 36.4 C L 94 H 17 122/83 91 09/12/21 12:50 36.7 C 99 H 17 119/84 93 09/12/21 12:30 36.7 C 93 H 17 119/84 93 09/12/21 11:58 36.4 C L 94 H 16 119/85 93 09/12/21 11:30 36.8 C 92 H 16 122/80 92 09/12/21 11:20 91 H 18 124/82 93 09/12/21 11:10 36.4 C L 89 20 120/86 94 09/12/21 11:00 91 H 17 140/99 93 09/12/21 10:50 87 18 137/93 95 09/12/21 10:42 36.1 C L 92 H 14 125/90 95 09/12/21 05:56 36.8 C 66 20 124/91 94 Pain Intensity Left Shoulder: Pain Intensity: 4 Transfer of Care Handoff Completed per policy Notes Mental Status: alert / awake / arousable and participated in evaluation Patient Amnestic to Procedure: Yes Nausea / Vomiting: adequately controlled Pain: adequately controlled Airway Patency, RR, SpO2: stable & adequate BP & HR: stable & adequate Hydration State: stable & adequate Anesthetic Complications: no major complications apparent and Pt Satisfied with anesthetic care
[2021-09-12] MEDS: ceFAZolin 2000MG 2,000 MG/15 ML SYR IV SCH (16:24)
[2021-09-12] MEDS: INSULIN ASPART PER UNIT SC SCH ×2 (17:34→21:45)
[2021-09-12] MEDS: DOCUSATE SODIUM 100 MG CAP PO SCH (19:49)
[2021-09-12] MEDS ORDERED: SENNA 8.6 MG TAB PO SCH (21:00)
[2021-09-13] MEDS: ceFAZolin 2000MG 2,000 MG/15 ML SYR IV SCH (00:07)
[2021-09-13] MEDS: oxyCODONE HCL IR 5 MG TAB (IMMEDIATE RELEASE) PO PRN ×2 (03:10→07:15)
[2021-09-13] MEDS: ACETAMINOPHEN 500 MG TAB PO SCH (05:50)
[2021-09-13 06:09] LABS: Basophils # (auto) 0.01 K/uL (0-0.2); Basophils % (auto) 0.1 %; Hematocrit (blood only) 40.7 % (40.1-51.0); Immature Granulocytes # (auto) 0.05 K/uL (0.00-0.02); Immature Granulocytes % (auto) 0.4 %; Lymphocytes # (auto) 0.89 K/uL (1.2-3.4); Lymphocytes % (auto) 6.8 %; Mean Corpuscular Hemoglobin 30.6 pg (25.0-34.0); Mean Corpuscular Hgb Conc 34.4 g/dL (32.0-36.0); Mean Corpuscular Volume 89.1 fL (80.0-100.0); Mean Platelet Volume 9.6 fL (9.4-12.4); Monocytes # (auto) 0.87 K/uL (0.24-0.82); Monocytes % (auto) 6.6 %; Neutrophils # (auto) 11.34 K/uL (1.4-6.5); Neutrophils % (auto) 86.1 %; Platelet Count 243 K/uL (130-400); RDW Coefficient of Variation 12.5 % (11.5-14.5); RDW Standard Deviation 41.2 fL (36.4-46.3); Red Blood Count 4.57 M/uL (4.63-6.08); White Blood Count 13.16 K/ul (4.8-10.8)
[2021-09-13] MEDS ORDERED: LEVOTHYROXINE SODIUM 50 MCG TABLET PO SCH (06:30)
[2021-09-13 06:40] LABS: BUN Creatinine Ratio 18.5 (10-20); Calcium 8.8 mg/dl (8.5-10.1); Creatinine Clr Calc Pharmacy 107.3 ml/min; Est GFR (African American) 100.1 ml/min; Est GFR (Non-African American) 86.4 ml/min; Potassium 4.4 mmol/L (3.5-5.1)
--- NOTE | 2021-09-13 07:17 | Orthopedic Progress Note ---
Date of Service September 13, 2021 Assessment & Plan (1) Primary osteoarthritis, left shoulder: Plan: Postop day #1 left simplicity total shoulder arthroplasty, open distal clavicle excision -PT/OT -Pain management as written -DVT prophylaxis: SCDs, home Plavix and aspirin -AM labs: Hemoglobin stable. Mild leukocytosis likely reactive due to surgical stress/perioperative steroids. -Discharge planning: Plan on discharge home with outpatient PT. Plan on discharge home today. Admission and Anticipated Discharge Date Admission Date: September 12, 2021 Subjective Postop day #1 left total shoulder. Patient is doing well postoperatively. His pain is well controlled. Block is starting to wear off and getting feeling back in his fingers. No current complaints. Denies chest pain, shortness of breath, dizziness, lightheadedness, nausea/vomiting/diarrhea. Review of Systems Review of Systems: All systems reviewed & are unremarkable except as noted in Subjective Physical Exam Physical Exam: Left shoulder: Dressing is clean, dry, intact. Hemovac in place. Sling in place. Fingers are mobile. Has good servicenow administrator strength. Good wrist extension. Distally neurovascular status and sensation intact. Constitutional: WD/WN, vitals as above Results & Data ([facility]) Vital Signs (Past 12 Hours) Vital Signs Temp Pulse Resp BP Pulse Ox 09/13/21 03:07 36.6 C 98 H 18 152/96 H 93 09/12/21 22:51 36.7 C 97 H 18 130/84 93 09/12/21 19:30 36.6 C 90 18 114/77 94 Laboratory Results Lab Results 09/12/21 09/12/21 09/12/21 Range/Units 05:24 05:41 06:20 WBC (4.8-10.8) K/ul RBC (4.63-6.08) M/uL Hgb (14.0-18.0) g/dl Hct (40.1-51.0) % MCV (80.0-100.0) fL MCH (25.0-34.0) pg MCHC (32.0-36.0) g/dL RDW Std Deviation (36.4-46.3) fL RDW Coeff of Cara (11.5-14.5) % Plt Count (130-400) K/uL MPV (9.4-12.4) fL Immature Gran % (Auto) % Neut % (Auto) % Lymph % (Auto) % Gosper % (Auto) % Eos % (Auto) % Baso % (Auto) % Neut # (Auto) (1.4-6.5) K/uL Lymph # (Auto) (1.2-3.4) K/uL Gosper # (Auto) (0.24-0.82) K/uL Eos # (Auto) (0-0.50) K/uL Baso # (Auto) (0-0.2) K/uL Immature Gran # (Auto) (0.00-0.02) K/uL Sodium (136-145) mmol/L Potassium (3.5-5.1) mmol/L Chloride (98-107) mmol/L Carbon Dioxide (21-32) mmol/L Anion Gap (3-11) BUN (6-23) mg/dl Creatinine (0.6-1.4) mg/dl Est Cr Clr Drug Dosing ml/min Est GFR ( Amer) ml/min Est GFR (Non-Af Amer) ml/min BUN/Creatinine Ratio (10-20) Glucose (70-99(Fasting)) mg/dl POC Glucose 106 H (70-99) mg/dl Calcium (8.5-10.1) mg/dl SARS-CoV-2, RNA, NAAT NEGATIVE (NEGATIVE) Blood Type O Positive Antibody Screen NEGATIVE 09/12/21 09/12/21 09/13/21 Range/Units 17:02 20:51 05:54 WBC 13.16 H (4.8-10.8) K/ul RBC 4.57 L (4.63-6.08) M/uL Hgb 14.0 (14.0-18.0) g/dl Hct 40.7 (40.1-51.0) % MCV 89.1 (80.0-100.0) fL MCH 30.6 (25.0-34.0) pg MCHC 34.4 (32.0-36.0) g/dL RDW Std Deviation 41.2 (36.4-46.3) fL RDW Coeff of Cara 12.5 (11.5-14.5) % Plt Count 243 (130-400) K/uL MPV 9.6 (9.4-12.4) fL Immature Gran % (Auto) 0.4 % Neut % (Auto) 86.1 % Lymph % (Auto) 6.8 % Gosper % (Auto) 6.6 % Eos % (Auto) 0.0 % Baso % (Auto) 0.1 % Neut # (Auto) 11.34 H (1.4-6.5) K/uL Lymph # (Auto) 0.89 L (1.2-3.4) K/uL Gosper # (Auto) 0.87 H (0.24-0.82) K/uL Eos # (Auto) 0.00 (0-0.50) K/uL Baso # (Auto) 0.01 (0-0.2) K/uL Immature Gran # (Auto) 0.05 H (0.00-0.02) K/uL Sodium (136-145) mmol/L Potassium (3.5-5.1) mmol/L Chloride (98-107) mmol/L Carbon Dioxide (21-32) mmol/L Anion Gap (3-11) BUN (6-23) mg/dl Creatinine (0.6-1.4) mg/dl Est Cr Clr Drug Dosing ml/min Est GFR ( Amer) ml/min Est GFR (Non-Af Amer) ml/min BUN/Creatinine Ratio (10-20) Glucose (70-99(Fasting)) mg/dl POC Glucose 185 H 142 H (70-99) mg/dl Calcium (8.5-10.1) mg/dl SARS-CoV-2, RNA, NAAT (NEGATIVE) Blood Type Antibody Screen 09/13/21 Range/Units 05:54 WBC (4.8-10.8) K/ul RBC (4.63-6.08) M/uL Hgb (14.0-18.0) g/dl Hct (40.1-51.0) % MCV (80.0-100.0) fL MCH (25.0-34.0) pg MCHC (32.0-36.0) g/dL RDW Std Deviation (36.4-46.3) fL RDW Coeff of Cara (11.5-14.5) % Plt Count (130-400) K/uL MPV (9.4-12.4) fL Immature Gran % (Auto) % Neut % (Auto) % Lymph % (Auto) % Gosper % (Auto) % Eos % (Auto) % Baso % (Auto) % Neut # (Auto) (1.4-6.5) K/uL Lymph # (Auto) (1.2-3.4) K/uL Gosper # (Auto) (0.24-0.82) K/uL Eos # (Auto) (0-0.50) K/uL Baso # (Auto) (0-0.2) K/uL Immature Gran # (Auto) (0.00-0.02) K/uL Sodium 135 L (136-145) mmol/L Potassium 4.4 (3.5-5.1) mmol/L Chloride 104 (98-107) mmol/L Carbon Dioxide 22 (21-32) mmol/L Anion Gap 9 (3-11) BUN 17 (6-23) mg/dl Creatinine 0.92 (0.6-1.4) mg/dl Est Cr Clr Drug Dosing 107.3 ml/min Est GFR ( Amer) 100.1 ml/min Est GFR (Non-Af Amer) 86.4 ml/min BUN/Creatinine Ratio 18.5 (10-20) Glucose 129 H (70-99(Fasting)) mg/dl POC Glucose (70-99) mg/dl Calcium 8.8 (8.5-10.1) mg/dl SARS-CoV-2, RNA, NAAT (NEGATIVE) Blood Type Antibody Screen
[2021-09-13] MEDS: DOCUSATE SODIUM 100 MG CAP PO SCH (07:49)
[2021-09-13] MEDS: NICOTINE 21 MG/24 HR TDSY TD SCH ×2 (07:49→07:54)
[2021-09-13] MEDS: INSULIN ASPART PER UNIT SC SCH (08:12)
[2021-09-13] MEDS ORDERED: ROSUVASTATIN CALCIUM 20 MG TAB PO SCH (09:00)
[2021-09-13] MEDS ORDERED: LOSARTAN POTASSIUM 50 MG TAB PO SCH (09:00)
[2021-09-13] MEDS ORDERED: CLOPIDOGREL BISULFATE 75 MG TAB PO SCH (09:00)
[2021-09-13] MEDS ORDERED: ATENOLOL 25 MG TABLET PO SCH (09:00)
[2021-09-13] MEDS ORDERED: ASPIRIN 81 MG ECTAB PO SCH (09:00)
[2021-09-13] MEDS ORDERED: MULTIVITAMIN TAB PO SCH (09:00)
--- NOTE | 2021-09-13 10:25 | Hospitalist Progress Note ---
Date of Service September 13, 2021 Assessment & Plan (1) Primary osteoarthritis, left shoulder: Plan: - S/p total left shoulder arthroplasty pod #1 - slight leukocytosis likely combo of reactive from surgery + steroids given preop - Pain control as written - Shoulder immobilizer as per ortho - Recommend dvt ppx 10-12 days - Incentive spirometer use q1h wa for atelectasis/pna prevention - f/u with ortho and PT/OT (2) Hypertension: Plan: - Continue atenolol and Losartan (3) Hyperlipidemia: Plan: - Continue rosuvastatin 20 mg daily. (4) Hypothyroidism: Plan: - Continue levothyroxine 50 mcg daily. (5) Prediabetes: Plan: - Hold metformin. - A1c in August --> 5.7, POC glucose this AM 106. - Will order accuchecks achs with SSI w/o carb ratio. (6) H/O TIA (transient ischemic attack) and stroke: Plan: - Reportedly 20 years ago without residual deficits. - Resumed ASA and Plavix Plan: No further recommendations at this time. Pt is deemed suitable for discharge from medicine standpoint. Thank you for allowing us to participate in the care of your patient, will sign off. Please feel free to notify if any acute needs should arise while pt remains in house. Plan to be d/w Dr. Yuan Husain. Admission and Anticipated Discharge Date Admission Date: September 12, 2021 Subjective Patient seen on daily rounds this morning. He is seen up ambulating around his room and in gleason. He denies L shoulder pain. No cp, dyspnea, n/v/d, f/c, headache, or gu symptoms. He feels block is starting to wear off and he is getting sensation/feeling back in his fingers/hand. Pt is R handed. Review of Systems Review of Systems: All systems reviewed and are unremarkable except as noted in HPI and below. Denies fever, chills, fatigue, headache, nasal congestion, sore throat, cough, chest pain, shortness of breath, palpitations, orthopnea, PND, abdominal pain, n/v/d, constipation, dysuria, hematuria, frequency, back pain, joint pain or swelling, easy bruising or bleeding, skin lesions or rashes. Physical Exam Physical Exam: GENERAL: 66 yo obese WM. NAD. LUNGS: Clear to auscultation bilaterally. No W/R/R. CARDIOVASCULAR: Regular rate and rhythm. No M/G/R. No JVD. ABDOMEN: Soft, non-tender and non-distended. BS normoactive x 4 quad. EXTREMITIES: L shoulder incision dressed and UE in sling. NV intact. No edema. Non-tender. Peripheral pulses +2/4. NEUROLOGIC: A&O x3. PSYCHIATRIC: Cooperative. Appropriate mood and affect. SKIN: Warm, dry, intact. No rashes or lesions. Results & Data Results & Data ([facility]) Vital Signs (Past 12 Hours) Vital Signs Temp Pulse Pulse Resp BP Pulse Ox 09/13/21 09:46 36.4 C L 91 H 92 H 20 150/92 H 93 09/13/21 07:22 36.4 C L 92 H 20 150/92 H 93 09/13/21 03:07 36.6 C 98 H 18 152/96 H 93 09/12/21 22:51 36.7 C 97 H 18 130/84 93 Laboratory Results 09/13/21 05:54 09/13/21 05:54 PG Care Time/CCT Total # of Minutes Spent Total Time Spent with Patient: Total time spent is greater than 50% in coordination of care (as documented) at patient's floor/unit and/or counseling patient: Coding Level of Care Code 01090 Subseq Hosp Care Lvl 2 Diagnoses Primary osteoarthritis, left shoulder M19.012 Hypertension I10 Hyperlipidemia E78.5 Hypothyroidism E03.9 Prediabetes R73.03 H/O TIA (transient ischemic attack) and stroke Z86.73
--- NOTE | 2021-09-14 07:56 | Discharge Summary ---
Date of Service September 14, 2021 Admission HPI Per Admitting Provider 66-year-old male with past medical history hypertension, history of TIA, high cholesterol, ROSSANA who presents with longstanding history of left shoulder pain. Pain is interfering with his daily activities. He has failed conservative measures. He like to proceed with surgical intervention. Patient denies headaches, sweats, fevers, chills, double vision, blurred vision, cough, sore throat, dysphagia, chest pain, sob, wheezing, n/v/d/c, numbness, tingling, fatigue, urinary symptoms, mood disorders. ROS positive for left shoulder pain and stiffness. Admission Exam Per Admitting Provider Constitutional: well developed and well nourished; no acute distress Eyes: PERRL, conjunctivae normal, anicteric sclerae ENMT: external ear and nose normal, oropharynx normal Neck: trachea midline, no thyromegaly Respiratory: normal respiratory effort, lungs clear to auscultation Cardiovascular: RRR, no murmur, no edema Musculoskeletal: Left shoulder: Tenderness AC joint, anterior glenoid, crepitation present with range of motion. Active painful range of motion. Positive impingement signs. Abduction to 70 degrees, forward flexion 140 degrees, external rotation 80 degrees. Strength is preserved. Skin: no rashes, warm and dry Neurologic: patellar DTR's 2+ bilat, sensation intact Psychiatric: A+Ox3, euthymic affect Principal Diagnosis left shoulder osteoarthritis Discharge Exam Left shoulder: Dressing is clean, dry, intact. Hemovac in place. Sling in place. Fingers are mobile. Has good traffic recorder strength. Good wrist extension. Distally neurovascular status and sensation intact. Constitutional WD/WN, vitals as above Discharge Data Allergies Allergy/AdvReac Type Severity Reaction Status Date / Time No Known Drug Allergies Allergy Verified 09/12/21 05:56 Consultations 09/07/21 15:18 Consult Hospitalist Routine Procedures Performed Operation Date: 09/12/21 07:00 Actual Procedures p Left Total Shoulder Arthroplasty, with Distal Clavicle excision, Biceps Tenodesis(Left) - Abdullahi Mariee MD Ordered Studies 09/12/21 08:42 US - OR guided needle placemen Routine Hospital Course (1) Primary osteoarthritis, left shoulder: Postop day #1 left simplicity total shoulder arthroplasty, open distal clavicle excision -PT/OT -Pain management as written -DVT prophylaxis: SCDs, home Plavix and aspirin -AM labs: Hemoglobin stable. Mild leukocytosis likely reactive due to surgical stress/perioperative steroids. -Discharge planning: Plan on discharge home with outpatient PT. Plan on discharge home today. Lab Results 09/12/21 09/12/21 09/12/21 Range/Units 05:24 05:41 06:20 WBC (4.8-10.8) K/ul RBC (4.63-6.08) M/uL Hgb (14.0-18.0) g/dl Hct (40.1-51.0) % MCV (80.0-100.0) fL MCH (25.0-34.0) pg MCHC (32.0-36.0) g/dL RDW Std Deviation (36.4-46.3) fL RDW Coeff of Cara (11.5-14.5) % Plt Count (130-400) K/uL MPV (9.4-12.4) fL Immature Gran % (Auto) % Neut % (Auto) % Lymph % (Auto) % [place] % (Auto) % Eos % (Auto) % Baso % (Auto) % Neut # (Auto) (1.4-6.5) K/uL Lymph # (Auto) (1.2-3.4) K/uL [place] # (Auto) (0.24-0.82) K/uL Eos # (Auto) (0-0.50) K/uL Baso # (Auto) (0-0.2) K/uL Immature Gran # (Auto) (0.00-0.02) K/uL Sodium (136-145) mmol/L Potassium (3.5-5.1) mmol/L Chloride (98-107) mmol/L Carbon Dioxide (21-32) mmol/L Anion Gap (3-11) BUN (6-23) mg/dl Creatinine (0.6-1.4) mg/dl Est Cr Clr Drug Dosing ml/min Est GFR ( Amer) ml/min Est GFR (Non-Af Amer) ml/min BUN/Creatinine Ratio (10-20) Glucose (70-99(Fasting)) mg/dl POC Glucose 106 H (70-99) mg/dl Calcium (8.5-10.1) mg/dl SARS-CoV-2, RNA, NAAT NEGATIVE (NEGATIVE) Blood Type O Positive Antibody Screen NEGATIVE 09/12/21 09/12/21 09/13/21 Range/Units 17:02 20:51 05:54 WBC 13.16 H (4.8-10.8) K/ul RBC 4.57 L (4.63-6.08) M/uL Hgb 14.0 (14.0-18.0) g/dl Hct 40.7 (40.1-51.0) % MCV 89.1 (80.0-100.0) fL MCH 30.6 (25.0-34.0) pg MCHC 34.4 (32.0-36.0) g/dL RDW Std Deviation 41.2 (36.4-46.3) fL RDW Coeff of Cara 12.5 (11.5-14.5) % Plt Count 243 (130-400) K/uL MPV 9.6 (9.4-12.4) fL Immature Gran % (Auto) 0.4 % Neut % (Auto) 86.1 % Lymph % (Auto) 6.8 % [place] % (Auto) 6.6 % Eos % (Auto) 0.0 % Baso % (Auto) 0.1 % Neut # (Auto) 11.34 H (1.4-6.5) K/uL Lymph # (Auto) 0.89 L (1.2-3.4) K/uL [place] # (Auto) 0.87 H (0.24-0.82) K/uL Eos # (Auto) 0.00 (0-0.50) K/uL Baso # (Auto) 0.01 (0-0.2) K/uL Immature Gran # (Auto) 0.05 H (0.00-0.02) K/uL Sodium (136-145) mmol/L Potassium (3.5-5.1) mmol/L Chloride (98-107) mmol/L Carbon Dioxide (21-32) mmol/L Anion Gap (3-11) BUN (6-23) mg/dl Creatinine (0.6-1.4) mg/dl Est Cr Clr Drug Dosing ml/min Est GFR ( Amer) ml/min Est GFR (Non-Af Amer) ml/min BUN/Creatinine Ratio (10-20) Glucose (70-99(Fasting)) mg/dl POC Glucose 185 H 142 H (70-99) mg/dl Calcium (8.5-10.1) mg/dl SARS-CoV-2, RNA, NAAT (NEGATIVE) Blood Type Antibody Screen 09/13/21 09/13/21 Range/Units 05:54 07:32 WBC (4.8-10.8) K/ul RBC (4.63-6.08) M/uL Hgb (14.0-18.0) g/dl Hct (40.1-51.0) % MCV (80.0-100.0) fL MCH (25.0-34.0) pg MCHC (32.0-36.0) g/dL RDW Std Deviation (36.4-46.3) fL RDW Coeff of Cara (11.5-14.5) % Plt Count (130-400) K/uL MPV (9.4-12.4) fL Immature Gran % (Auto) % Neut % (Auto) % Lymph % (Auto) % [place] % (Auto) % Eos % (Auto) % Baso % (Auto) % Neut # (Auto) (1.4-6.5) K/uL Lymph # (Auto) (1.2-3.4) K/uL [place] # (Auto) (0.24-0.82) K/uL Eos # (Auto) (0-0.50) K/uL Baso # (Auto) (0-0.2) K/uL Immature Gran # (Auto) (0.00-0.02) K/uL Sodium 135 L (136-145) mmol/L Potassium 4.4 (3.5-5.1) mmol/L Chloride 104 (98-107) mmol/L Carbon Dioxide 22 (21-32) mmol/L Anion Gap 9 (3-11) BUN 17 (6-23) mg/dl Creatinine 0.92 (0.6-1.4) mg/dl Est Cr Clr Drug Dosing 107.3 ml/min Est GFR ( Amer) 100.1 ml/min Est GFR (Non-Af Amer) 86.4 ml/min BUN/Creatinine Ratio 18.5 (10-20) Glucose 129 H (70-99(Fasting)) mg/dl POC Glucose 137 H (70-99) mg/dl Calcium 8.8 (8.5-10.1) mg/dl SARS-CoV-2, RNA, NAAT (NEGATIVE) Blood Type Antibody Screen Total Time Total Time Spent Total Time Spent (In Minutes): 20 Discharge Plan Discharge Items Patient Disposition: Home - Self-Care Reason For Visit: Osteoarthritis Left Shoulder Discharge Diagnosis: Left shoulder osteoarthritis Activity: Per Instructions section Non-emergency contact: Surgeon Call non-emergency contact if: you have any medication questions, your pain is not controlled, your pain is concerning for you, you have a fever, your temperature is above 101, your wound has increased redness and your wound has increased drainage Follow-up/Referrals: Mague Ramirez MD [Primary Care Provider] - Diet: Regular Addtl Attending Provider Instructions: ACTIVITY RECOMMENDATIONS: SELF CARE INSTRUCTIONS AFTER TOTAL SHOULDER ARTHROPLASTY A. You may do daily exercises as taught in physical therapy while in hospital. No lifting with the operative arm. Please schedule your outpatient physical therapy appointment to begin within 2-3 days after leaving the hospital. Specific restrictions will be written on your physical therapy prescription that is provided to you. B. You are to wear your sling/immobilizer at all times EXCEPT when performing your daily exercises, participating in physical therapy and for hygiene purposes. C. You may perform dry, daily dressing changes. Please keep your incision covered. You may shower 48 hours after surgery. Do not apply soap or any ointment/lotions directly over incision. Do not soak incision in bath tub/swimming pool. D. You may use ice as needed to operative shoulder. SPECIAL CARE INSTRUCTIONS: MEDICATION INSTRUCTIONS: *It is recommended you take Aspirin 325mg daily for four weeks post-op. VERY IMPORTANT TO READ AND REVIEW A. There are a few signs you need to watch for after you are home. Call [facility] at [phone] if you experience any of the followin. Increased severe shoulder pain. Some pain is expected especially when you exercise. 2. Increased swelling in you shoulder or arm; pain or swelling in either upper extremity. 3. Any fluid drainage from the incision. 4. Shortness of breath or chest pain. B. Please call [facility] at [phone] if you have any questions or concerns about your operation or recovery. C. Call your physician if: 1. Temperature is greater than 101 degrees (F). 2. Pain is not relieved by prescribed pain medications. 3. Increase drainage or redness from incision. 4. Unanswered questions or concerns. FOLLOW UP VISIT: Please call [facility] at [phone] to schedule a follow up appointment with Dr. Mariee or his PA in 12-14 days from your surgery date. Stand-Alone Forms: [facility], Smoking Cessation Medications and DC Order Prescriptions: New acetaminophen [Tylenol Extra Strength] 500 mg Tablet 1,000 mg PO Q8 Qty: 60 RF: 0 oxycodone 5 mg Tablet 5 - 10 mg PO .Q4h-6h MDD 6 PRN (Reason: pain) Qty: 30 RF: 0 Continued atenolol 25 mg tablet 25 mg PO QAM Qty: 90 RF: 3 losartan 100 mg tablet 100 mg PO QAM Qty: 90 RF: 3 aspirin 81 mg tablet,delayed release (DR/EC) 81 mg PO QAM RF: 0 clopidogrel [Plavix] 75 mg tablet 75 mg PO QAM RF: 0 rosuvastatin [Crestor] 20 mg tablet 20 mg PO QAM RF: 0 metformin 500 mg tablet 1,000 mg PO QAM RF: 0 levothyroxine [Synthroid] 50 mcg tablet 50 mcg PO QAM RF: 0 Discontinued hydrocodone-acetaminophen 5-325 mg tablet 1 tab PO Q6H PRN (Reason: pain) Qty: 20 RF: 0 Discharge Orders: Discharge Order (Routine); Ordered 09/13/21 Ordered By: Elias Forte Admission Data Admit Date/Time: 09/12/21 10:43 Attending Provider: Abdullahi Mariee Admit Provider: Abdullahi Mariee Primary Care Provider: Mague Ramirez Other Providers: Ashvin Husain. Other Interventions: Discharge Summary Assessment (RN) Last Done: 09/13/21 09:46
== END 2021-09-13 10:36 | disposition home or self-care (01) ==
LOC: ASU 05:05 → 3E 10:43 → INTOOBSV 10:43

== ENCOUNTER 2023-02-20 07:57 | Observation (INO) ==
--- NOTE | 2023-01-29 11:20 | PAT Medication Instructions ---
Medication Instructions Date of Service January 29, 2023 Home Medications Medication Instructions Recorded metformin 500 mg tablet 1,000 mg (2 x 500 mg) PO QAM #180 04/02/22 tabs clopidogrel 75 mg tablet (Plavix) 75 mg PO QAM #90 tabs 10/08/22 rosuvastatin 20 mg tablet (Crestor) 20 mg PO QAM #90 tabs 10/08/22 losartan 100 mg tablet 100 mg PO QAM #90 tabs 11/27/22 atenolol 25 mg tablet 25 mg PO QAM #90 tabs 12/16/22 hydrocodone 5 mg-acetaminophen 325 1 tab PO BID PRN pain, severe #60 01/29/23 mg tablet tabs levothyroxine 50 mcg tablet 50 mcg PO QAM #30 tabs 01/29/23 (Synthroid) aspirin 81 mg tablet,delayed release 81 mg PO QAM metformin 500 mg tablet 1,000 mg (2 x 500 mg) PO QAM clopidogrel 75 mg tablet (Plavix) 75 mg PO QAM rosuvastatin 20 mg tablet (Crestor) 20 mg PO QAM losartan 100 mg tablet 100 mg PO QAM atenolol 25 mg tablet 25 mg PO QAM hydrocodone 5 mg-acetaminophen 325 mg tablet 1 tab PO BID PRN levothyroxine 50 mcg tablet (Synthroid) 50 mcg PO QAM tamsulosin 0.4 mg capsule (Flomax) 0.4 mg PO QAM ASK your prescriber and surgeon aspirin 81 mg tablet,delayed release 81 mg PO QAM clopidogrel 75 mg tablet (Plavix) 75 mg PO QAM DO NOT take the morning of surgery metformin 500 mg tablet 1,000 mg (2 x 500 mg) PO QAM losartan 100 mg tablet 100 mg PO QAM Take morning of surgery With a small sip of water, OTHERWISE NOTHING TO EAT OR DRINK AFTER MIDNIGHT: rosuvastatin 20 mg tablet (Crestor) 20 mg PO QAM atenolol 25 mg tablet 25 mg PO QAM hydrocodone 5 mg-acetaminophen 325 mg tablet 1 tab PO BID PRN(if needed) levothyroxine 50 mcg tablet (Synthroid) 50 mcg PO QAM tamsulosin 0.4 mg capsule (Flomax) 0.4 mg PO QAM Take evening before surgery hydrocodone 5 mg-acetaminophen 325 mg tablet 1 tab PO BID PRN(if needed) Other Notes If you have any questions please call us at [phone] or [phone] or [phone] or [phone]
--- NOTE | 2023-02-07 12:10 | Anesthesiology Consultation ---
Date of Service February 07, 2023 Assessment & Plan (1) Encounter for pre-operative examination: - check BSG am DOS. - Outpatient joint assessment: Patient is currently scheduled for inpatient pathway. If re-evaluated and patient/surgeon requests outpatient pathway, patient is acceptable candidate for outpatient joint program from anesthesia standpoint pending surgeon's office assessment of pt motivation/support/completion of same day joint program preop requirements. Chart Review Chart Review: Acceptable Risk for Surgery and Patient seen in Pre Admission Testing Teaching & Discussion Pre-Anesthesia Teaching/Discussion Notes: Instructed NPO after midnight before surgery, except medications with 15 cc of water. Medication instructions provided according to the PAT guidelines. History Surgery Operation Date: 02/20/23 07:00 Proposed Procedures p Right Total Shoulder Arthroplasty(Right) - Abdullahi Mariee MD Height/Weight Height: 5 ft 10 in Weight: 123.4 kg Allergies Allergy/AdvReac Type Severity Reaction Status Date / Time No Known Drug Allergies Allergy Verified 01/29/23 10:52 Medications Home Medications Medication Instructions Recorded Confirmed Last Taken aspirin 81 mg tablet,delayed 81 mg PO QAM 10/21/18 01/29/23 07/30/22 release metformin 500 mg tablet 1,000 mg (2 x 500 mg) PO QAM #180 04/02/22 01/29/23 07/30/22 tabs clopidogrel 75 mg tablet (Plavix) 75 mg PO QAM #90 tabs 10/08/22 01/29/23 Unknown rosuvastatin 20 mg tablet (Crestor) 20 mg PO QAM #90 tabs 10/08/22 01/29/23 Unknown losartan 100 mg tablet 100 mg PO QAM #90 tabs 11/27/22 01/29/23 Unknown atenolol 25 mg tablet 25 mg PO QAM #90 tabs 12/16/22 01/29/23 Unknown hydrocodone 5 mg-acetaminophen 325 1 tab PO BID PRN pain, severe #60 01/29/23 01/29/23 Unknown mg tablet tabs levothyroxine 50 mcg tablet 50 mcg PO QAM #30 tabs 01/29/23 01/29/23 Unknown (Synthroid) tamsulosin 0.4 mg capsule (Flomax) 0.4 mg PO QAM 01/29/23 01/29/23 Unknown Past Medical History Medical History Stroke 20 yrs ago per pt Smoker Hearing loss Prediabetes Reason for metformin Morbid obesity Cerebral atherosclerosis per pt with imaging 20 yrs ago Biceps tendon tear R 2-3 yrs ago Hypothyroidism Lyme disease 2 episodes (8-10 years ago) Hyperlipidemia Glaucoma Carpal tunnel syndrome s/p surgery on right Hypertension controlled, stable per pt Patient denies h/o seizures, heart attack, heart failure, blood clots/DVTs or blood transfusions. Exercise / Class Metabolic Activity III < 4 Walking/Shop/Light housework (denies chest discomfort or shortness of breath with usual activities) Past Family History Family History Mother Diabetes Hypertension Father Myocardial infarction Other No family history of adverse response to anesthesia Denies family history of Ovarian cancer Prostate cancer Breast cancer Colorectal cancer Past Surgical History Surgical History History of colonoscopy S/P tendon repair right bicep tendon repair History of arthroplasty of left shoulder S/P colonoscopy History of carpal tunnel release Right Hx of arthroscopic knee surgery Right x2 and Left x1 Past Anesthesia History No Hx of Anesthesia Complications and No Family Hx of Anesthesia Complications History of PONV No Hx of PONV and No Hx of Motion Sickness Social History Smoking Status: Current every day smoker tobacco type: cigarettes Smoking cigarettes per day: 1 ppd-advised Do You Dip or Chew Tobacco: No Hx Alcohol Use: Yes Alcohol type: beer alcohol intake frequency: a few times a week Hx Substance Use: Yes substance use type: marijuana (-advised) Last Used Substance: Days (ago) Review of Systems Snoring, denies witnessed apneas. Patient denies chest pain, shortness of breath, dyspnea on exertion, reflux, fever, chills, cough, wheezing, or palpitations. Physical Exam Vital Signs Vitals BP 114/76 P 69 TEMP 98.2 SP02 97% on RA RESP 18 Physical Patient resting comfortably in chair in no acute distress, alert and oriented, responding appropriately throughout visit Full cervical extension range of motion without pain TMD 3.5 finger breadths Mallampati Score 2 Dentition: several crowns; denies chipped or loose teeth, caps, implants or bridges Lungs: normal respiratory effort. Good air movement, clear throughout to auscultation, no adventitious breath sounds Cardiac: regular rate and rhythm, no murmurs noted Carotid arteries: negative bruit bilat Lab Results Anesthesia Preop Results Results Anesthesia Widget: WBC 7.86 K/ul (4.8-10.8) 02/07/23 Hgb 15.1 g/dl (14.0-18.0) 02/07/23 Hct 45.3 % (42.0-52.0) 02/07/23 Plt 250 K/uL (130-400) 02/07/23 Na 138 mmol/L (136-145) 02/07/23 K 4.4 mmol/L (3.5-5.1) 02/07/23 Cl 106 mmol/L (98-107) 02/07/23 CO2 25 mmol/L (21-32) 02/07/23 BUN 14 mg/dl (6-23) 02/07/23 Creat 0.84 mg/dl (0.6-1.4) 02/07/23 Glucose Level 92 mg/dl (70-99(Fasting)) 02/07/23 PT 11.0 Seconds (9.0-12.0) 02/07/23 PTT 31.0 Seconds (21.0-31.0) 02/07/23 INR 1.0 (0.9-1.1) 02/07/23 HA1c 6.0 % (4.5-5.6) H 02/07/23 Urine Color Yellow 02/07/23 Urine Appearance Clear (Clear) 02/07/23 Urine pH 5.5 (4.5-7.5) 02/07/23 Urine Specific [place] 1.020 (1.000-1.030) 02/07/23 Urine Protein Negative (Negative) 02/07/23 Urine Glucose (UA) Negative (Negative) 02/07/23 Urine Ketones Negative (Negative) 02/07/23 Urine Blood Negative (Negative) 02/07/23 Urine Nitrite Negative (Negative) 02/07/23 Urine Bilirubin Negative (Negative) 02/07/23 Urine Urobilinogen Negative (Negative) 02/07/23 Urine Leukocyte Esterase Negative (Negative) 02/07/23 Blood Type O Positive 02/07/23 Antibody Screen NEGATIVE 02/07/23 Testing Electrocardiogram Date: 02/07/23 NSR, rate 65 bpm Chest X-Ray Date: 02/07/23 No acute chest disease.
--- NOTE | 2023-02-15 08:31 | History & Physical Report ---
Date of Service February 15, 2023 Assessment & Plan (1) Primary osteoarthritis, right shoulder: Plan: Treatment options discussed with the patient. They have failed conservative measures and would like to proceed with surgical management. Risks, benefits and alternatives to surgery including but not limited to infection, DVT, pain, stiffness, need for revision surgery, damage to blood vessels, damage to nerves, PE, , were discussed with the patient and they wish to proceed. Plan for right total shoulder arthroplasty, open distal clavicle excision scheduled for February 20 at [facility] with Dr. Mariee. All questions answered. Patient will follow-up postoperatively. History of Present Illness Chief Complaint: Right shoulder pain Primary Care Provider: Mague Ramirez MD 67-year-old male with past medical history hypertension, history of TIA, high cholesterol, ROSSANA, previous left total shoulder, who presents with longstanding history of right shoulder pain. Pain is interfering with his daily activities. He has failed conservative measures. He like to proceed with surgical intervention. Patient denies headaches, sweats, fevers, chills, double vision, blurred vision, cough, sore throat, dysphagia, chest pain, sob, wheezing, n/v/d/c, numbness, tingling, fatigue, urinary symptoms, mood disorders. ROS positive for right shoulder pain and stiffness. Allergies Allergy/AdvReac Type Severity Reaction Status Date / Time No Known Drug Allergies Allergy Verified 01/29/23 10:52 Home Medications Medication Instructions Recorded Confirmed Type aspirin 81 mg tablet,delayed 81 mg PO QAM 10/21/18 01/29/23 History release metformin 500 mg tablet 1,000 mg (2 x 500 mg) PO QAM #180 04/02/22 01/29/23 Rx tabs clopidogrel 75 mg tablet (Plavix) 75 mg PO QAM #90 tabs 10/08/22 01/29/23 Rx rosuvastatin 20 mg tablet (Crestor) 20 mg PO QAM #90 tabs 10/08/22 01/29/23 Rx losartan 100 mg tablet 100 mg PO QAM #90 tabs 11/27/22 01/29/23 Rx atenolol 25 mg tablet 25 mg PO QAM #90 tabs 12/16/22 01/29/23 Rx hydrocodone 5 mg-acetaminophen 325 1 tab PO BID PRN pain, severe #60 01/29/23 01/29/23 Rx mg tablet tabs levothyroxine 50 mcg tablet 50 mcg PO QAM #30 tabs 01/29/23 01/29/23 Rx (Synthroid) tamsulosin 0.4 mg capsule (Flomax) 0.4 mg PO QAM 01/29/23 01/29/23 History Past Med/Surg History Medical History Stroke 20 yrs ago per pt Smoker Hearing loss Prediabetes Reason for metformin Morbid obesity Cerebral atherosclerosis per pt with imaging 20 yrs ago Biceps tendon tear R 2-3 yrs ago Hypothyroidism Lyme disease 2 episodes (8-10 years ago) Hyperlipidemia Glaucoma Carpal tunnel syndrome s/p surgery on right Hypertension controlled, stable per pt Surgical History History of colonoscopy S/P tendon repair right bicep tendon repair History of arthroplasty of left shoulder S/P colonoscopy History of carpal tunnel release Right Hx of arthroscopic knee surgery Right x2 and Left x1 Family History Mother Diabetes Hypertension Father Myocardial infarction Other No family history of adverse response to anesthesia Denies family history of Ovarian cancer Prostate cancer Breast cancer Colorectal cancer Social History Smoking Status: Current every day smoker Tobacco Type: Cigarettes Age Started Using Tobacco: 16; packs per day: 1; Cigarettes Per Day: 1 ppd-advised; Second Hand Exposure: Yes; Do You Dip or Chew Tobacco: No; Tobacco Cessation Education Requested by Patient: No Hx Alcohol Use: Yes Alcohol type: beer Hx Substance Use: Yes Last Used Substance: Days (ago) Preferred Language: Austrian Communication Ability: Effective Hearing Ability: Hard of Hearing 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 Required: No Beliefs That Will Affect Care: None marital status: Current Living Situation: Spouse current occupational status: 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 How many Children do You have: 4 Feels Safe at Home: Yes Safety Concerns: Feels Safe At This Time Childhood Exposure to Second-Hand Smoke: Yes Diet: regular caffeine: Yes during the past year weight has: remained stable Dental Care, Regularly: Yes Physical Activity Frequency: Daily Seatbelt Use: never Sunscreen Use: Yes Do you think of yourself as: straight/heterosexual Gender Identity: Male Assistive Devices: None Review of Systems All systems reviewed & are unremarkable except as noted in HPI & below Physical Exam Constitutional: well developed and well nourished; no acute distress Eyes: PERRL, conjunctivae normal, anicteric sclerae ENMT: external ear and nose normal, oropharynx normal Neck: trachea midline, no thyromegaly Respiratory: normal respiratory effort, lungs clear to auscultation Cardiovascular: RRR, no murmur, no edema Musculoskeletal: Right shoulder: Tenderness anterior glenoid. Progressive pain and stiffness right shoulder. Active painful range of motion. Forward flexion to 140 degrees, abduction to 50 degrees. Normal strength. Skin: no rashes, warm and dry Neurologic: patellar DTR's 2+ bilat, sensation intact Psychiatric: A+Ox3, euthymic affect Results & Data Diagnostic Findings Right shoulder radiographs demonstrate end-stage osteoarthritis right shoulder, [id number] glenohumeral joint. There is periarticular osteophytes. Arthritis at the AC joint. MRI demonstrates an intact rotator cuff.
[~2023-02-20 07:57] MED LIST changes: +ACETAMINOPHEN 500 MG TAB PO SCH; -ASPI81TA28 PO; -ATEN-173 PO; +BUPIVACAINE 0.5 % 5 MG/1 ML PF 10ML VIAL ONE; -CLOP1TAB15 PO; -CRESTOR PO; -CYCL0.052 OP; +CeleBREX 200 MG CAP PO SCH; +EpINEphrine HCL INJ 1 MG/ML 1ML SYRINGE IR ONE; +FAMOTIDINE 20 MG TAB PO SCH; +GABAPENTIN 300 MG CAP PO SCH; -GLC/500 PO; -HYZ/10015 PO; -LEVO50TA6 PO; +LR 15ML/HR IV SCH; +LR 60ML/HR IV SCH; +METOCLOPRAMIDE HCL 10 MG TABLET PO SCH; +MIDAZOLAM HCL 1 MG/ML 2ML VIAL ONE; +PROPOFOL IV EMULSION 10 MG/ML 20 ML VIAL IV ONE; +ROCURONIUM BROMIDE 10 MG/ML 5 ML VIAL IV ONE; +TRANEXAMIC ACID 1,000 MG **IV Intra-op IV SCH; +TRANEXAMIC ACID 1,000 MG **IV Pre-op IV SCH; +fentaNYL citrate PF 100 MCG/2 ML VIAL ONE
[2023-02-20] MEDS ORDERED: ATROPINE SULFATE 0.1 MG/ML 10ML SYR IV PRN (08:55)
[2023-02-20] MEDS ORDERED: ONDANSETRON INJ 2 MG/ML 2 ML VIAL IV PRN ×2 (08:55→14:57)
[2023-02-20] MEDS ORDERED: ePHEDrine sulfate 50 MG/ML AMP IV PRN (08:55)
--- NOTE | 2023-02-20 09:10 | History & Physical Bridge Note ---
Date of Service February 20, 2023 History & Physical Bridge Note I have examined the patient, reviewed the History & Physical and in the interval since the performance of the History & Physical I have noted the following changes of clinical significance: no changes noted
[2023-02-20] MEDS ORDERED: ceFAZolin 330 MG/ML 1 GM VIAL ONE (10:15)
[2023-02-20] MEDS ORDERED: ONDANSETRON INJ 2 MG/ML 2 ML VIAL ONE (10:16)
[2023-02-20] MEDS ORDERED: ePHEDrine sulfate 50 MG/5 ML SYR ONE (10:36)
[2023-02-20] MEDS ORDERED: fentaNYL citrate PF 100 MCG/2 ML VIAL ONE (11:00)
[2023-02-20] MEDS ORDERED: ROCURONIUM BROMIDE 10 MG/ML 5 ML VIAL IV ONE (11:07)
[2023-02-20] MEDS ORDERED: SUGAMMADEX SODIUM 200 MG/2 ML VIAL IV ONE (12:34)
--- NOTE | 2023-02-20 12:59 | Operative Report ---
Post Operative Report Pre & Post Diagnosis Operation Date: 02/20/23 09:35 Pre-Op Diagnosis: Right Shoulder Primary Osteoarthritis Glenohumeral and AC joint Post-Op Diagnosis: Right Shoulder Primary Osteoarthritis glenohumeral and AC joint with biceps tendinopathy tenosynovitis I identified the patient and participated in the time-out.: Yes Procedure Operation Date: 02/20/23 09:35 Right stemless anatomic Total Shoulder Arthroplasty, Right Shoulder Distal Clavicle Excision(Right) , biceps tenodesis- Abdullahi Mariee MD Surgeon Abdullahi Mariee MD Chair Upholsterer Elias SCHMITT Estimated Blood Loss 100 Findings Consistent with Post-Op Diagnosis Specimens humeral head cut and distal clavicle Drains 2 Hemovac Anesthesia Type General Regional Complications none Disposition Disposition: Recovery Room Indications 67-year-old male with chronic right shoulder pain failed conservative management. Patient has end-stage glenohumeral osteoarthritis with AC joint osteoarthritis advanced as well. Intact rotator cuff by MRI. Description of Procedure patient was taken to the operating room anesthetized under regional block and general anesthetic. Patient was placed in a 40 degree beach chair position with a foam headrest protective eyewear all extremities padded teds and SCDs were placed. A towel roll was placed on the medial border of the scapula of the Right upper extremity. The arm was examined and range of motion demonstrated 170 degrees forward flexion and 80 degrees external rotation . he did have an obese arm.An anterior deltopectoral approach was performed. Longitudinal incision was made in deltopectoral interval. Skin incised sharply and subcutaneous flaps elevated. The deltopectoral interval was identified. The cephalic vein demonstrated Large normal-appearing vein. The cephalic vein was retracted laterally with the deltoid. The upper centimeter of the pectoralis was released for inferior exposure. Biceps tendon demonstrated Large fluid collection which appeared to be chronically inflamed around the biceps tendon with tenosynovitis and intra-articularly degenerative SLAP tear with biceps tendinopathy. The biceps was tenodesed to the pectoralis tendon using #2 FiberWire [id number] and whipstitch type sutures. Proximal biceps was resected. Rotator cuff findings demonstrated normal-appearing intact rotator cuff. The circumflex vessels were tied off with silk ties and divided laterally. The subscapularis muscle fibers were split at the level of circumflex vessels and released off the inferior capsule with a Kitner elevator and then a blunt Hohmann retractor was placed protect the axillary nerve. The rotator interval was released down to the level of the glenoid. The subscapu arsenio tendon was taken down with a transtendinous incision leaving a cuff of tissue for repair on the lesser tuberosity. The humeral head findings demonstrated eburnated bone with inferior osteophytes extending from anterior to posterior. The inferior osteophytes were resected using an artist chisel and rongeur. The inferior capsule was released off the bone subperiosteally using a Lucia elevator. A #1 Vicryl traction suture was placed into the free edge of the subscapularis tendon. A Fukuda retractor was placed into the joint. Capsule was released with Pérez scissors down to the glenoid and off of the anterior glenoid to the rotator interval which was released to meet the capsular release creating a 360 degree release of subscapularis tendon. An anterior Bankart retractor was placed. The glenoid and labral findings demonstrated Chronic degenerative labral tearing circumferentially with concentric type A wear pattern. An anterior-inferior and posterior inferior capsule release was performed electrocautery on bone and a Lucia elevator. The axillary nerve was protected inferiorly with the blunt Hohmann. Attention was taken back to the humeral head. Humeral head was exposed with extension and external rotation. The oscillating saw was used to make an anatomic neck cut removing the articular surface. All the circumferential remaining osteophytes were trimmed with a r ongeur. The humerus was sized for a 2 nucleus and a 52 x 23mm simplicity humeral head. The bone was assessed with a thumb press test and there was solid cancellous bone. The guide for the nucleus was placed centrally and then the guidepin was placed. The surface reamer was used followed by the central drill for the nucleus. The trial nucleus was inserted and the cut protector was placed. The humerus was retracted posterior to the glenoid . A Tornier retractor ,Hohmann retractors as well as an anterior Bankart retractor were placed. The glenoid was fully exposed. The Tornier Cortiloc glenoid was used. The medium 40 radius Cortiloc size was chosen. The central drill hole was made followed by the reamer for the glenoid followed by widening the central hole for the central post. The guide for the peripheral drill holes was placed and the drill holes were made. The trial reduction performed with stable fixation. The trial removed and the glenoid copiously irrigated with pulsed saline solution. The drill holes were packed with epinephrine-soaked tampons. The Palacos G cement was vacuum mixed. The medium 40 radius Cortiloc glenoid component was then cemented in position after drying the glenoid after removal of the tampons. Fixation was excellent. All excess cement was cleared. When the cement cured we moved onto removing the cut protector doing a trial reduction with a 52 x 23 millimeter humeral head trial. Stability was assessed and was stable. Soft tissue tension on the subscapularis tendon was satisfactory. The trial components of the humeral head were removed and the 3 drill holes were made in the harder bone in the biceps groove area and transosseous #5 FiberWire sutures were placed. Then the humeral cut surface was reexposed with retractors and after irrigation the size to simpliciti nucleus was impacted leaving it slightly proud until the 52 x 23 mm simpliciti humeral head was placed into the nucleus and then both were impacted into the humerus with a tight press-fit. The humerus was reduced to the glenoid. The stability was verified. the joint was irrigated with xperience irrigation. The subscapularis tendon was repaired in 2 [id number] #2 FiberWire sutures. Lateral row fixation was performed with interrupted [id number] #2 FiberWire sutures and rotator interval was closed with #2 FiberWire sutures. Range of motion demonstrated 160 degrees of forward flexion 60 degrees External rotation 90 degrees abduction without any tension on repair. The pectoralis was repaired with [id number] #2 FiberWire sutures placing sutures back through the biceps tendon to reinforce the tenodesis. a transverse incision was made over the AC joint. The skin was incised sharply and subcutaneous bleeders were cauterized. A transverse incision was made through the deltoid trapezius fascia overlying the AC joint and reflected off the distal clavicle which demonstrated hypertrophic arthritis with osteophytes joint space narrowing and a degenerative meniscus. 1 cm distal clavicle was resected with an oscillating saw. Small osteophytes removed with a rongeur. After further irrigation the deltotrapezial fascia was repaired with [id number] #2 FiberWire sutures followed by subcutaneous 2-0 Vicryl sutures and skin closed with valeri. 2Drains were placed in the deltopectoral incision. After further irrigation the deltopectoral interval was repaired with [id number] #1 Vicryl sutures. The subcutaneous tissue was repaired with 2-0 Vicryl sutures and the skin was closed with valeri. Sterile dressings were applied and a sling immobilizer. The patient tolerated the procedure well. Elias SCHMITT acted as community relations assistant throughout the procedure. He functioned as community relations assistant assisting in all aspects of the procedure including patient positioning prepping draping, arm positioning, soft tissue retraction,, instrument management, subcutaneous and skin closure and postop care the patient as well. I attest to the content of the Intraoperative Record and any orders documented therein. Any exceptions are noted below.
[2023-02-20] MEDS: fentaNYL citrate PF 100 MCG/2 ML VIAL IV PRN ×2 (13:39→13:47)
--- NOTE | 2023-02-20 14:02 | Anesthesiology Progress Note ---
Date of Service February 20, 2023 Anesthesia Post Procedure Vital Signs Vital Signs: Temp Pulse Pulse Resp BP BP Pulse Ox 02/20/23 13:55 97.2 F L 57 L 22 114/88 94 02/20/23 13:45 58 L 21 114/92 93 02/20/23 13:35 60 17 140/95 95 02/20/23 13:25 65 16 144/92 H 95 02/20/23 13:15 69 16 129/89 98 02/20/23 13:07 97.0 F L 72 18 139/93 98 02/20/23 08:31 02/20/23 08:16 97.9 F 63 18 132/83 96 O2 Del Method O2 Flow Rate 02/20/23 13:55 Room Air 2 02/20/23 13:45 Room Air 2 02/20/23 13:35 Room Air 2 02/20/23 13:25 Room Air 02/20/23 13:15 Oxymask 8 02/20/23 13:07 Oxymask 8 02/20/23 08:31 Room Air 02/20/23 08:16 Room Air Pain Intensity Right Shoulder: Pain Intensity: 3 Right Axilla: Pain Intensity: 3 Transfer of Care Handoff Completed per policy Notes Mental Status: alert / awake / arousable and participated in evaluation Patient Amnestic to Procedure: Yes Nausea / Vomiting: adequately controlled Pain: adequately controlled Airway Patency, RR, SpO2: stable & adequate BP & HR: stable & adequate Hydration State: stable & adequate Anesthetic Complications: no major complications apparent and Pt Satisfied with anesthetic care
--- NOTE | 2023-02-20 14:23 | XRay Report ---
RIGHT SHOULDER 2 VIEWS CLINICAL HISTORY: Postoperative examination. FINDINGS: 2 portable views of the right shoulder are obtained. The skeletal structures are osteopenic . A right shoulder arthroplasty is in near anatomic alignment. No fracture is seen. Postsurgical rowland ge is also seen at the AC joint. Skin clips, subcutaneous gas, a surgical drain, and soft tissue swel ling overlying the right shoulder are expected postoperative findings. Imaged right lung parenchyma a ppears clear. IMPRESSION: Expected postsurgical findings status post right shoulder arthroplasty. No acute fracture is seen. Electronically signed by: Dalton Diallo M.D. 02/20/2023 2:21 PM
[2023-02-20] MEDS ORDERED: NALOXONE HCL 0.4 MG/1 ML VIAL/CARP IV PRN (14:57)
[2023-02-20] MEDS ORDERED: MAGNESIUM HYDROXIDE SUSP 30 ML UDC PO PRN (14:57)
[2023-02-20] MEDS ORDERED: SODIUM CHLORIDE 0.9% 1,000 ML IV SCH (14:57)
[2023-02-20] MEDS ORDERED: HYDROmorphone INJ 0.5 MG/0.5 ML SYR IV PRN (14:57)
[2023-02-20] MEDS ORDERED: bisacodyL 10 MG SUPP PR PRN (14:57)
[2023-02-20] MEDS ORDERED: METOCLOPRAMIDE HCL INJ 5 MG/ML 2 ML VIAL IV PRN (14:57)
[2023-02-20] MEDS: ACETAMINOPHEN 500 MG TAB PO SCH ×2 (15:53→22:27)
--- NOTE | 2023-02-20 16:26 | Hospitalist Consultation ---
Date of Consultation February 20, 2023 Assessment & Plan (1) Primary osteoarthritis, right shoulder: s/p Right stemless anatomic Total Shoulder Arthroplasty, Right Shoulder Distal Clavicle Excision(Right) , biceps tenodesis- Abdullahi Mariee MD. EBL 100cc Pain control, bowel regimen, PT/OT, DVT prophylaxis per primary service Monitor labs in AM (2) Hypertension: Chronic, stable BP presently 121/78 post-operatively, did not have any lows (actually 159/81, 146/95) Given hx TIA, continuing home atenolol 25mg, losartan 100mg Monitor BP If any hypotension/drop in BP this evening can place losartan on hold for AM until renal function/BP re-assessed Diet changed to include AHA/DM. Smoking cessation encouraged (3) Hyperlipidemia: chronic, stable continue home crestor 20mg daily (4) H/O TIA (transient ischemic attack) and stroke: hx TIA continue home BB, statin, ASA/Plavix Smoking cessation encouraged given increased risks/comorbidities (5) Smoker: Current smoker, about 1 1/2 ppd reported -- has been smoking since age 16 Pt requested nicotine patch, ordered Per PCP notes, multiple discussions about cessation and continued encouragement but patient not wanting to quit at present time. Encouraged him to follow up for discussions when he wishes to quit for medication assistance w/ such. Not on any maintenance inhalers/hx COPD or emphysema. Doesn't appear any prior p ulmonology visits or PFTs in the past--> rec pt to f/u PCP about having outpatient PFT testing/baseline medication. 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 Hospitalist service will follow up in AM/labs. Please call with any questions/concerns. History of Present Illness Reason for Consultation: post-op management Requesting Physician: Dr Mariee Attending Physician: Abdullahi Mariee MD History of Present Illness 67yo male with PMHx significant for TIA, HTN, HLD, Pre-DM (A1c 6.0), smoker (about 1 1/2ppd), hypothyroidism presented for RIGHT shoulder arthroplasty with Dr Mariee 02/20. EBL 100cc. Evaluated in room 311, doing well. Sitting up in bed. Had his other shoulder done last year. Sensation intact and fingers mobile, able to squeeze my hand. Sling in place. No CP/SOB reported, on 2L post-operatively. Took some of his pills this morning but has had his ASA/Plavix on hold for about a week. Discussed these are on board to resume in the morning. Will hold losartan temporarily but suspect able to resume in AM. Smoking about 1 1/2 packs per day, nicotine patch ordered. Started smoking at age 16. Occasional social drinker/beer on the weekend but no everyday use. Discussed cessation/to follow up discussion with his primary care if/when he decides to quit. No fever/chills, abdominal pain, nausea/vomiting, no headache/blurred vision reported. He is anticipating discharge tomorrow. Allergies Allergy/AdvReac Type Severity Reaction Status Date / Time No Known Drug Allergies Allergy Verified 02/20/23 08:24 Home Medications Medication Instructions Recorded Confirmed Type aspirin 81 mg tablet,delayed 81 mg PO QAM 10/21/18 02/20/23 History release metformin 500 mg tablet 1,000 mg (2 x 500 mg) PO QAM #180 04/02/22 02/20/23 Rx tabs clopidogrel 75 mg tablet (Plavix) 75 mg PO QAM #90 tabs 10/08/22 02/20/23 Rx rosuvastatin 20 mg tablet (Crestor) 20 mg PO QAM #90 tabs 10/08/22 02/20/23 Rx losartan 100 mg tablet 100 mg PO QAM #90 tabs 11/27/22 02/20/23 Rx atenolol 25 mg tablet 25 mg PO QAM #90 tabs 12/16/22 02/20/23 Rx hydrocodone 5 mg-acetaminophen 325 1 tab PO BID PRN pain, severe #60 01/29/23 02/20/23 Rx mg tablet tabs levothyroxine 50 mcg tablet 50 mcg PO QAM #30 tabs 01/29/23 02/20/23 Rx (Synthroid) tamsulosin 0.4 mg capsule (Flomax) 0.4 mg PO QAM 01/29/23 02/20/23 History Patient History Medical History Stroke 20 yrs ago per pt Smoker Hearing loss Prediabetes Reason for metformin Morbid obesity Cerebral atherosclerosis per pt with imaging 20 yrs ago Biceps tendon tear R 2-3 yrs ago Hypothyroidism Lyme disease 2 episodes (8-10 years ago) Hyperlipidemia Glaucoma Carpal tunnel syndrome s/p surgery on right Hypertension controlled, stable per pt Surgical History History of colonoscopy S/P tendon repair right bicep tendon repair History of arthroplasty of left shoulder S/P colonoscopy History of carpal tunnel release Right Hx of arthroscopic knee surgery Right x2 and Left x1 Family History Mother Diabetes Hypertension Father Myocardial infarction Other No family history of adverse response to anesthesia Denies family history of Ovarian cancer Prostate cancer Breast cancer Colorectal cancer Social History Smoking Status: Current every day smoker Tobacco Type: Cigarettes Age Started Using Tobacco: 16; packs per day: 1; Cigarettes Per Day: 1 ppd-advised; Second Hand Exposure: Yes; Do You Dip or Chew Tobacco: No; Tobacco Cessation Education Requested by Patient: No Hx Alcohol Use: Yes Alcohol type: beer Hx Substance Use: Yes Last Used Substance: Days (ago) Preferred Language: Albanian Communication Ability: Effective Hearing Ability: Hard of Hearing 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: No Beliefs That Will Affect Care: None marital status: Current Living Situation: Spouse current occupational status: 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 How many Children do You have: 4 Feels Safe at Home: Yes Safety Concerns: Feels Safe At This Time Childhood Exposure to Second-Hand Smoke: Yes Diet: regular caffeine: Yes during the past year weight has: remained stable Dental Care, Regularly: Yes Physical Activity Frequency: Daily Seatbelt Use: never Sunscreen Use: Yes Do you think of yourself as: straight/heterosexual Gender Identity: Male Assistive Devices: None Physical Exam Physical Exam: General: WD/WN obese male sitting up in bed, NAD HEENT: head atraumatic normocephalic, mmm, trachea midline, thick neck Resp: diminished in the bases, no w/c/r, on 2L post-op CV: RRR, no significant mrg GI: +BS, obese, nontender : no carnes MSK/Neuro: R shoulder in sling, fingers mobile, 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 returning nonfocal on exam, answering questions appropriately Psych: AOx3, cooperative with exam Results & Data Results & Data Vital Signs (Past 12 Hours) Vital Signs Temp Pulse Pulse Pulse Resp BP BP 02/20/23 15:47 37.1 C 69 18 121/78 02/20/23 15:20 36.5 C 81 18 146/95 H 02/20/23 14:50 02/20/23 14:50 36.5 C 74 18 159/81 H 02/20/23 14:25 74 12 128/74 02/20/23 14:10 60 15 120/84 02/20/23 13:55 36.2 C L 57 L 22 114/88 02/20/23 13:45 58 L 21 114/92 02/20/23 13:35 60 17 140/95 02/20/23 13:25 65 16 144/92 H 02/20/23 13:15 69 16 129/89 02/20/23 13:07 36.1 C L 72 18 139/93 02/20/23 08:31 02/20/23 08:16 36.6 C 63 18 132/83 Pulse Ox O2 Del Method O2 Flow Rate 02/20/23 15:47 96 Nasal Cannula 2 02/20/23 15:20 95 Nasal Cannula 2 02/20/23 14:50 Nasal Cannula 2 02/20/23 14:50 96 Nasal Cannula 2 02/20/23 14:25 95 Room Air 2 02/20/23 14:10 95 Room Air 2 02/20/23 13:55 94 Room Air 2 02/20/23 13:45 93 Room Air 2 02/20/23 13:35 95 Room Air 2 02/20/23 13:25 95 Room Air 02/20/23 13:15 98 Oxymask 8 02/20/23 13:07 98 Oxymask 8 02/20/23 08:31 Room Air 02/20/23 08:16 96 Room Air Diagnostic Findings Shoulder X-Ray 02/20/23 13:12 RIGHT SHOULDER 2 VIEWS CLINICAL HISTORY: Postoperative examination. FINDINGS: 2 portable views of the right shoulder are obtained. The skeletal structures are osteopenic. A right shoulder arthroplasty is in near anatomic alignment. No fracture is seen. Postsurgical change is also seen at the AC join t. Skin clips, subcutaneous gas, a surgical drain, and soft tissue swelling overlying the right shoulder are expected postoperative findings. Imaged right lung parenchyma appears clear. IMPRESSION: Expected postsurgical findings status post right shoulder arthroplasty. No acute fracture is seen. Electronically signed by: Dalton Diallo M.D. 02/20/2023 2:21 PM PG Care Time/CCT Total # of Minutes Spent Total Time Spent with Patient: Total time spent is greater than 50% in coordination of care (as documented) at patient's floor/unit and/or counseling patient: Coding Level of Care Code 35428 IN/OBS CONSULT LVL 3,45M Diagnoses Primary osteoarthritis, right shoulder M19.011 Hypertension I10 Hyperlipidemia E78.5 H/O TIA (transient ischemic attack) and stroke Z86.73 Smoker F17.200 Prediabetes R73.03 Hypothyroidism E03.9 BPH (benign prostatic hypertrophy) N40.0
[2023-02-20] MEDS ORDERED: DEXTROSE 50% 50 ML SYRINGE IV PRN (16:59)
[2023-02-20] MEDS ORDERED: GLUCOSE 10 TAB/TUBE PO PRN (16:59)
[2023-02-20] MEDS: NICOTINE 21 MG/24 HR TDSY TD SCH (16:59)
[2023-02-20] MEDS ORDERED: CARBOHYDRATES FOR HYPOGLYCEMIA PO PRN (16:59)
[2023-02-20] MEDS ORDERED: GLUCAGON FOR INJ 1 MG VIAL SQ PRN (16:59)
[2023-02-20] MEDS ORDERED: GLUCOSE 40% GEL 15 GM TUBE PO PRN (16:59)
[2023-02-20] MEDS: INSULIN ASPART PER UNIT CHARGE SC SCH ×2 (17:36→20:42)
[2023-02-20] MEDS: oxyCODONE HCL IR 5 MG TAB (IMMEDIATE RELEASE) PO PRN ×2 (18:05→22:28)
[2023-02-20] MEDS: ceFAZolin 2000MG 2,000 MG/15 ML SYR IV SCH (18:07)
[2023-02-20] MEDS: DOCUSATE SODIUM 100 MG CAP PO SCH (20:42)
[2023-02-20] MEDS ORDERED: SENNA 8.6 MG TAB PO SCH (21:00)
[2023-02-21] MEDS: ceFAZolin 2000MG 2,000 MG/15 ML SYR IV SCH (01:34)
[2023-02-21] MEDS: oxyCODONE HCL IR 5 MG TAB (IMMEDIATE RELEASE) PO PRN ×3 (02:27→11:23)
[2023-02-21] MEDS: ACETAMINOPHEN 500 MG TAB PO SCH (05:45)
[2023-02-21 06:28] LABS: Basophils # (auto) 0.05 K/uL (0.00-0.20); Basophils % (auto) 0.6 %; Eosinophils # (auto) 0.03 K/uL (0.00-0.50); Eosinophils % (auto) 0.3 %; Hemoglobin 14.4 g/dl (14.0-18.0); Immature Granulocytes # (auto) 0.04 K/uL (0.01-0.20); Immature Granulocytes % (auto) 0.4 %; Lymphocytes # (auto) 1.65 K/uL (1.20-3.40); Lymphocytes % (auto) 18.3 %; Mean Corpuscular Hemoglobin 30.4 pg (25.0-34.0); Mean Corpuscular Hgb Conc 32.7 g/dL (32.0-36.0); Mean Corpuscular Volume 92.8 fL (80.0-100.0); Mean Platelet Volume 9.8 fL (9.4-12.4); Monocytes # (auto) 0.77 K/uL (0.11-0.59); Monocytes % (auto) 8.5 %; Neutrophils % (auto) 71.9 %; Platelet Count 231 K/uL (130-400); RDW Coefficient of Variation 12.5 % (11.5-14.5); RDW Standard Deviation 42.6 fL (36.4-46.3); Red Blood Count 4.74 M/uL (4.70-6.10); White Blood Count 9.04 K/ul (4.8-10.8)
[2023-02-21] MEDS ORDERED: LEVOTHYROXINE SODIUM 50 MCG TABLET PO SCH (06:30)
[2023-02-21 07:05] LABS: BUN Creatinine Ratio 15.8 (10-20); Calcium 8.9 mg/dl (8.6-10.3); Creatinine Clr Calc Pharmacy 99.4 ml/min; Est GFR (African American) 95.6 ml/min; Est GFR (Non-African American) 82.5 ml/min; Magnesium 1.6 mg/dl (1.7-2.4); Potassium 4.2 mmol/L (3.5-5.1)
[2023-02-21] MEDS: DOCUSATE SODIUM 100 MG CAP PO SCH (07:34)
[2023-02-21] MEDS: NICOTINE 21 MG/24 HR TDSY TD SCH (07:36)
--- NOTE | 2023-02-21 07:36 | Orthopedic Progress Note ---
Date of Service February 21, 2023 Assessment & Plan (1) Primary osteoarthritis, right shoulder: Plan: Postop day #1 right total shoulder arthroplasty, open distal clavicle excision -PT/OT: No active motion of the shoulder. Follow TSA protocol -DVT prophylaxis: SCDs, aspirin 81 mg daily, Plavix. -Pain management as written -A.m. labs: Hemoglobin stable at 14.4 from 15 preop -Discharge planning: Plan on discharge home with outpatient physical therapy. Plan to discharge home later this morning. Admission and Anticipated Discharge Date Admission Date: February 20, 2023 Subjective Patient feeling well this morning. Pain is controlled. No other complaints. Denies chest pain, shortness of breath, nausea/vomiting/diarrhea, headaches or dizziness. Review of Systems Review of Systems: All systems reviewed & are unremarkable except as noted in Subjective Physical Exam Physical Exam: Right shoulder: Dressing is clean, dry, intact. Sling in place. 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 Distal neurovascular status and sensation is grossly intact. Results & Data Vital Signs (Past 12 Hours) Vital Signs Temp Pulse Resp BP Pulse Ox O2 Del Method O2 Flow Rate 02/21/23 06:59 37.7 C H 107 H 16 115/83 92 Room Air 02/21/23 02:30 37.2 C 81 22 146/98 H 94 Room Air 02/20/23 22:38 37.1 C 96 H 20 154/90 H 96 Nasal Cannula 1 02/20/23 20:45 Room Air 02/20/23 19:52 37.2 C 69 20 120/81 95 Room Air Laboratory Results Lab Results 02/20/23 02/20/23 02/21/23 Range/Units 08:31 20:36 05:58 WBC 9.04 (4.8-10.8) K/ul RBC 4.74 (4.70-6.10) M/uL Hgb 14.4 (14.0-18.0) g/dl Hct 44.0 (42.0-52.0) % MCV 92.8 (80.0-100.0) fL MCH 30.4 (25.0-34.0) pg MCHC 32.7 (32.0-36.0) g/dL RDW Std Deviation 42.6 (36.4-46.3) fL RDW Coeff of Cara 12.5 (11.5-14.5) % Plt Count 231 (130-400) K/uL MPV 9.8 (9.4-12.4) fL Immature Gran % (Auto) 0.4 % Neut % (Auto) 71.9 % Lymph % (Auto) 18.3 % [facility] % (Auto) 8.5 % Eos % (Auto) 0.3 % Baso % (Auto) 0.6 % Neut # (Auto) 6.50 (1.40-6.50) K/uL Lymph # (Auto) 1.65 (1.20-3.40) K/uL [facility] # (Auto) 0.77 H (0.11-0.59) K/uL Eos # (Auto) 0.03 (0.00-0.50) K/uL Baso # (Auto) 0.05 (0.00-0.20) K/uL Immature Gran # (Auto) 0.04 (0.01-0.20) K/uL Sodium 137 (136-145) mmol/L Potassium 4.2 (3.5-5.1) mmol/L Chloride 103 (98-107) mmol/L Carbon Dioxide 28 (21-32) mmol/L Anion Gap 6 (3-11) BUN 15 (6-23) mg/dl Creatinine 0.95 (0.6-1.4) mg/dl Est Cr Clr Drug Dosing 99.4 ml/min Est GFR ( Amer) 95.6 ml/min Est GFR (Non-Af Amer) 82.5 ml/min BUN/Creatinine Ratio 15.8 (10-20) Glucose 107 H (70-99(Fasting)) mg/dl POC Glucose 88 103 H (70-99) mg/dl Calcium 8.9 (8.6-10.3) mg/dl Magnesium 1.6 L (1.7-2.4) mg/dl Vitamin B12 186 (180-914) pg/ml
--- NOTE | 2023-02-21 07:38 | Discharge Summary ---
Date of Service February 21, 2023 Admission HPI Per Admitting Provider 67-year-old male with past medical history hypertension, history of TIA, high cholesterol, ROSSANA, previous left total shoulder, who presents with longstanding history of right shoulder pain. Pain is interfering with his daily activities. He has failed conservative measures. He like to proceed with surgical intervention. Patient denies headaches, sweats, fevers, chills, double vision, blurred vision, cough, sore throat, dysphagia, chest pain, sob, wheezing, n/v/d/c, numbness, tingling, fatigue, urinary symptoms, mood disorders. ROS positive for right shoulder pain and stiffness. Admission Exam Per Admitting Provider Constitutional: well developed and well nourished; no acute distress Eyes: PERRL, conjunctivae normal, anicteric sclerae ENMT: external ear and nose normal, oropharynx normal Neck: trachea midline, no thyromegaly Respiratory: normal respiratory effort, lungs clear to auscultation Cardiovascular: RRR, no murmur, no edema Musculoskeletal: Right shoulder: Tenderness anterior glenoid. Progressive pain and stiffness right shoulder. Active painful range of motion. Forward flexion to 140 degrees, abduction to 50 degrees. Normal strength. Skin: no rashes, warm and dry Neurologic: patellar DTR's 2+ bilat, sensation intact Psychiatric: A+Ox3, euthymic affect Principal Diagnosis Right shoulder osteoarthritis Discharge Exam Right shoulder: Dressing is clean, dry, intact. Sling in place. 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 Distal neurovascular status and sensation is grossly intact. Discharge Data Allergies Allergy/AdvReac Type Severity Reaction Status Date / Time No Known Drug Allergies Allergy Verified 02/20/23 08:24 Consultations 02/17/23 16:00 Consult Hospitalist Routine Procedures Performed Operation Date: 02/20/23 09:35 Actual Procedures p Right Total Shoulder Arthroplasty, Right Shoulder Distal Clavical Excision(Right) - Abdullahi Mariee MD Ordered Studies 02/20/23 05:00 US - OR guided needle placemen Routine Hospital Course (1) Primary osteoarthritis, right shoulder: Postop day #1 right total shoulder arthroplasty, open distal clavicle excision -PT/OT: No active motion of the shoulder. Follow TSA protocol -DVT prophylaxis: SCDs, aspirin 81 mg daily, Plavix. -Pain management as written -A.m. labs: Hemoglobin stable at 14.4 from 15 preop -Discharge planning: Plan on discharge home with outpatient physical therapy. Plan to discharge home later this morning. Lab Results 02/20/23 02/20/23 02/21/23 Range/Units 08:31 20:36 05:58 WBC 9.04 (4.8-10.8) K/ul RBC 4.74 (4.70-6.10) M/uL Hgb 14.4 (14.0-18.0) g/dl Hct 44.0 (42.0-52.0) % MCV 92.8 (80.0-100.0) fL MCH 30.4 (25.0-34.0) pg MCHC 32.7 (32.0-36.0) g/dL RDW Std Deviation 42.6 (36.4-46.3) fL RDW Coeff of Cara 12.5 (11.5-14.5) % Plt Count 231 (130-400) K/uL MPV 9.8 (9.4-12.4) fL Immature Gran % (Auto) 0.4 % Neut % (Auto) 71.9 % Lymph % (Auto) 18.3 % [place] % (Auto) 8.5 % Eos % (Auto) 0.3 % Baso % (Auto) 0.6 % Neut # (Auto) 6.50 (1.40-6.50) K/uL Lymph # (Auto) 1.65 (1.20-3.40) K/uL [place] # (Auto) 0.77 H (0.11-0.59) K/uL Eos # (Auto) 0.03 (0.00-0.50) K/uL Baso # (Auto) 0.05 (0.00-0.20) K/uL Immature Gran # (Auto) 0.04 (0.01-0.20) K/uL Sodium 137 (136-145) mmol/L Potassium 4.2 (3.5-5.1) mmol/L Chloride 103 (98-107) mmol/L Carbon Dioxide 28 (21-32) mmol/L Anion Gap 6 (3-11) BUN 15 (6-23) mg/dl Creatinine 0.95 (0.6-1.4) mg/dl Est Cr Clr Drug Dosing 99.4 ml/min Est GFR ( Amer) 95.6 ml/min Est GFR (Non-Af Amer) 82.5 ml/min BUN/Creatinine Ratio 15.8 (10-20) Glucose 107 H (70-99(Fasting)) mg/dl POC Glucose 88 103 H (70-99) mg/dl Calcium 8.9 (8.6-10.3) mg/dl Magnesium 1.6 L (1.7-2.4) mg/dl Vitamin B12 186 (180-914) pg/ml Total Time Total Time Spent Total Time Spent (In Minutes): 20 Discharge Plan Discharge Items Patient Disposition: Home - Self-Care Reason For Visit: Right Shoulder Primary Osteoarthritis Discharge Diagnosis: Right shoulder osteoarthritis Activity: Per Instructions section Non-emergency contact: Surgeon Call non-emergency contact if: you have any medication questions, your pain is not controlled, you have a fever, your temperature is above 101, your wound has increased redness and your wound has increased drainage Follow-up/Referrals: Mague Ramirez MD [Primary Care Provider] - Diet: Regular Addtl Attending Provider Instructions: ACTIVITY RECOMMENDATIONS: SELF CARE INSTRUCTIONS AFTER TOTAL SHOULDER ARTHROPLASTY A. You may do daily exercises as taught in physical therapy while in hospital. No lifting with the operative arm. Please schedule your outpatient physical therapy appointment to begin within 2-3 days after leaving the hospital. Specific restrictions will be written on your physical therapy prescription that is provided to you. B. You are to wear your sling/immobilizer at all times EXCEPT when performing your daily exercises, participating in physical therapy and for hygiene purposes. C. You may perform dry, daily dressing changes. Please keep your incision covered. You may shower 48 hours after surgery. Do not apply soap or any ointment/lotions directly over incision. Do not soak incision in bath tub/swimming pool. D. You may use ice as needed to operative shoulder. SPECIAL CARE INSTRUCTIONS: VERY IMPORTANT TO READ AND REVIEW A. There are a few signs you need to watch for after you are home. Call [facility] at [phone] if you experience any of the followin. Increased severe shoulder pain. Some pain is expected especially when you exercise. 2. Increased swelling in you shoulder or arm; pain or swelling in either upper extremity. 3. Any fluid drainage from the incision. 4. Shortness of breath or chest pain. B. Please call [facility] at [phone] if you have any questions or concerns about your operation or recovery. C. Call your physician if: 1. Temperature is greater than 101 degrees (F). 2. Pain is not relieved by prescribed pain medications. 3. Increase drainage or redness from incision. 4. Unanswered questions or concerns. FOLLOW UP VISIT: Please call [facility] at [phone] to schedule a follow up appointment with Dr. Mariee or his PA in 12-14 days from your surgery date. Stand-Alone Forms: My [facility] [employer], Smoking Cessation Medications and DC Order Prescriptions: New oxycodone 5 mg Tablet 5 - 10 mg PO .Q4h-6h MDD 6 PRN (Reason: pain) Qty: 30 0RF Rx Instructions: Ongoing therapy, Dr. Mariee supervising acetaminophen [Tylenol Extra Strength] 500 mg Tablet 1,000 mg PO Q8 Qty: 60 0RF Continued metformin 500 mg tablet 1,000 mg PO QAM Qty: 180 3RF clopidogrel [Plavix] 75 mg tablet 75 mg PO QAM Qty: 90 1RF rosuvastatin [Crestor] 20 mg tablet 20 mg PO QAM Qty: 90 3RF losartan 100 mg tablet 100 mg PO QAM Qty: 90 3RF atenolol 25 mg tablet 25 mg PO QAM Qty: 90 3RF levothyroxine [Synthroid] 50 mcg tablet 50 mcg PO QAM Qty: 30 5RF aspirin 81 mg tablet,delayed release (DR/EC) 81 mg PO QAM tamsulosin [Flomax] 0.4 mg capsule 0.4 mg PO QAM Discontinued hydrocodone-acetaminophen 5-325 mg tablet 1 tab PO BID PRN (Reason: pain, severe) Qty: 60 0RF Discharge Orders: Discharge Order (Routine); Ordered 02/21/23 Ordered By: Elias Forte Admission Data Admit Date/Time: 02/20/23 13:12 Attending Provider: Abdullahi Mariee Admit Provider: Abdullahi Mariee Primary Care Provider: Mague Ramirez Other Providers: Francisco Ren
[2023-02-21] MEDS ORDERED: MAGNESIUM SULFATE / D5W 1 GM/100 ML BAG IV ONE (08:04)
[2023-02-21] MEDS: INSULIN ASPART PER UNIT CHARGE SC SCH (08:56)
[2023-02-21] MEDS ORDERED: LOSARTAN POTASSIUM 50 MG TAB PO SCH (09:00)
[2023-02-21] MEDS ORDERED: ATENOLOL 25 MG TABLET PO SCH (09:00)
[2023-02-21] MEDS ORDERED: TAMSULOSIN HCL 0.4 MG CAP PO SCH (09:00)
[2023-02-21] MEDS ORDERED: CYANOCOBALAMIN (B-12) 500 MCG TABLET PO SCH (09:00)
[2023-02-21] MEDS ORDERED: ASPIRIN 81 MG ECTAB PO SCH (09:00)
[2023-02-21] MEDS ORDERED: CLOPIDOGREL BISULFATE 75 MG TAB PO SCH (09:00)
[2023-02-21] MEDS ORDERED: MULTIVITAMIN TAB PO SCH (09:00)
[2023-02-21] MEDS ORDERED: ROSUVASTATIN CALCIUM 20 MG TAB PO SCH (09:00)
--- NOTE | 2023-02-21 10:11 | Hospitalist Progress Note ---
Date of Service February 21, 2023 Assessment & Plan (1) Primary osteoarthritis, right shoulder: Plan: s/p Right stemless anatomic Total Shoulder Arthroplasty, Right Shoulder Distal Clavicle Excision(Right) , biceps tenodesis- Abdullahi Mariee MD on 02/20. EBL 100cc WBC wnl, afebrile (did have temp checked this morning after several cups of coffee, repeat 36.9C). Decaff coffee discussed as well. Hgb 15.1--> 14.4, acute blood loss/dilutional aspect from IVF Pain control, bowel regimen, PT/OT, DVT prophylaxis per primary service Patient stable for dc today, dispo per primary service (2) Hypertension: Plan: Chronic, stable BP 115/83, continues on home atenolol, losartan Diet changed to include AHA/DM. Smoking cessation encouraged (3) Hyperlipidemia: Plan: chronic, stable continue home crestor 20mg daily (4) H/O TIA (transient ischemic attack) and stroke: Plan: hx TIA continue home BB, statin, ASA/Plavix Smoking cessation encouraged given increased risks/comorbidities (5) Smoker: Plan: Current smoker, about 1 1/2 ppd reported -- has been smoking since age 16 Pt requested nicotine patch, ordered Per PCP notes, multiple discussions about cessation and continued encouragement but patient not wanting to quit at present time. Encouraged him to follow up for discussions when he wishes to quit for medication assistance w/ such. Not on any maintenance inhalers/hx COPD or emphysema. Doesn't appear any prior pulmonology visits or PFTs in the past--> rec pt to f/u PCP about having outpatient PFT testing/baseline medication. 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 Replacement ordered prior to dc. B12 supplementation as above Plan Thank you for allowing hospitalist service to participate in the care of Mr Tran. Hospitalist service will sign off at this time. Admission and Anticipated Discharge Date Admission Date: February 20, 2023 Supervising Physician Co-Signing Physician Notes The patient was not seen by me. The chart was reviewed. Case discussed with KESHIA Jansen. Agree with assessment and plan Subjective Eval this morning, doing well. Pain controlled. Labs stable. Tremor chronic/baseline. Discussed B12/supplementation. No fever/chills, chest pain, shortness of breath. Had temp checked this AM after coffee -- did discussed limiting caffeine/decaf to prevent issues. Questions/concerns addressed at this time. Anticipating dc today. 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, radial pulse palpable tremor (chronic, baseline reported) nonfocal on exam, answering questions appropriately Psych: AOx3, cooperative with exam Results & Data Results & Data Vital Signs (Past 12 Hours) Vital Signs Temp Pulse Resp BP Pulse Ox O2 Del Method O2 Flow Rate 02/21/23 09:45 36.9 C 85 16 115/83 92 02/21/23 08:09 36.9 C 85 16 02/21/23 06:59 37.7 C H 107 H 16 115/83 92 Room Air 02/21/23 02:30 37.2 C 81 22 146/98 H 94 Room Air 02/20/23 22:38 37.1 C 96 H 20 154/90 H 96 Nasal Cannula 1 Laboratory Results 02/21/23 05:58 02/21/23 05:58 Diagnostic Findings Shoulder X-Ray 02/20/23 13:12 RIGHT SHOULDER 2 VIEWS CLINICAL HISTORY: Postoperative examination. FINDINGS: 2 portable views of the right shoulder are obtained. The skeletal structures are osteopenic. A right shoulder arthroplasty is in near anatomic alignment. No fracture is seen. Postsurgical change is also seen at the AC joint. Skin clips, subcutaneous gas, a surgical drain, and soft tissue swelling overlying the right shoulder are expected postoperative findings. Imaged right lung parenchyma appears clear. IMPRESSION: Expected postsurgical findings status post right shoulder arthroplasty. No acute fracture is seen. Electronically signed by: Dalton Diallo M.D. 02/20/2023 2:21 PM PG Care Time/CCT Total # of Minutes Spent Total Time Spent with Patient: Total time spent is greater than 50% in coordination of care (as documented) at patient's floor/unit and/or counseling patient: Coding Level of Care Code 43260 SUB INP/OBS CARE 2/35MIN Diagnoses Primary osteoarthritis, right shoulder M19.011 Hypertension I10 Hyperlipidemia E78.5 H/O TIA (transient ischemic attack) and stroke Z86.73 Smoker F17.200 Prediabetes R73.03 Hypothyroidism E03.9 BPH (benign prostatic hypertrophy) N40.0 Tremor R25.1 Hypomagnesemia E83.42
== END 2023-02-21 11:43 | disposition home or self-care (01) ==
LOC: 3E 07:57 → ASU 07:57